=== PATIENT | male | born 1965 | race Caucasian/White ===

== ENCOUNTER 2020-07-07 11:28 | Inpatient (IN) | payer BC ==
--- NOTE | 2020-07-07 12:25 | EDM.PDOC ---
ED HPI GENERAL MEDICAL PROBLEM - General Chief Complaint: Respiratory Problem Stated Complaint: SOB/COIVD+ Time Seen by Provider: 07/07/20 11:56 Source of Information: Reports: Patient, RN Notes Reviewed History Limitations: Reports: No Limitations - History of Present Illness INITIAL COMMENTS - FREE TEXT/NARRATIVE: Patient is a 54-year-old male who presents to the ED for the evaluation of his COVID-19. Patient notes that he got sick last week or Sunday, he was tested for COVID-19 on Sunday, got his results back today that he was positive. He is complaining of a dry intermittent cough, mild shortness of breath with exertion, O2 sats have been in the mid 90s at around 94 to 95% on room air. He is complaining of headache, all over body aches, loss of his sense of smell and taste. He is not in any visible respiratory distress, he has not had any fevers or chills, but states he does get hot and cold flashes. He does not know anyone that had like symptoms, and he denies any known sick contacts that he may have had. He denies any other past medical history, he takes no medications, and he does not have a primary care provider. Headache Pain Score (Numeric/FACES): 7 - Related Data Allergies Allergy/AdvReac Type Severity Reaction Status Date / Time No Known Allergies Allergy Verified 07/07/20 11:59 Home Meds: Home Meds . [No Known Home Meds] 07/07/20 [History] Past Medical History HEENT History: Reports: Impaired Vision Other HEENT History: glasses Neurological History: Reports: Head Trauma Other Neuro History: Pt was run over by horses, plate in scalp. jul 2017 - Infectious Disease History Infectious Disease History: Reports: Novel Coronavirus (COVID-19 jul 01 2020) - Past Surgical History Musculoskeletal Surgical History: Reports: Arthroscopic Knee, Shoulder Surgery, Other (See Below) Other Musculoskeletal Surgeries/Procedures:: ACL, Left bicep tendon, skull fracture with plate in scalp. Social & Family History - Tobacco Use Tobacco Use Status *Q: Never Tobacco User - Caffeine Use Caffeine Use: Reports: Coffee - Alcohol Use Days Per Week of Alcohol Use: 4 Number of Drinks Per Day: 2 Total Drinks Per Week: 8 - Recreational Drug Use Recreational Drug Use: No ED ROS GENERAL - Review of Systems Review Of Systems: Comprehensive ROS is negative, except as noted in HPI. ED EXAM, GENERAL - Physical Exam Exam: See Below Exam Limited By: No Limitations General Appearance: Alert, WD/WN, No Apparent Distress Respiratory/Chest: No Respiratory Distress, Lungs Clear, Normal Breath Sounds, No Accessory Muscle Use, Chest Non-Tender Cardiovascular: Normal Peripheral Pulses, Regular Rate, Rhythm, No Murmur Peripheral Pulses: 2+: Radial (L), Radial (R) GI/Abdominal: Normal Bowel Sounds, Soft, Non-Tender, No Distention, No Mass Extremities: Normal Inspection, Normal Capillary Refill Neurological: Alert, Oriented, Normal Cognition, No Motor/Sensory Deficits Psychiatric: Normal Affect, Normal Mood Skin Exam: Warm, Dry, Intact, Normal Color, No Rash #1 Interpretation EKG Date: 07/07/20 Time: 12:58 Rhythm: NSR Rate (Beats/Min): 77 Taylor: Normal P-Wave: Present QRS: Normal ST-T: Normal QT: Normal Comparison: NA - No Prior EKG EKG Interpretation Comments: No obvious ischemia or acute ST changes noted, reviewed by myself and Dr. Valenzuela. Course - Vital Signs Last Recorded V/S: Last Vital Signs Temp 98.6 F 07/07/20 11:52 Pulse 81 07/07/20 15:25 Resp 24 H 07/07/20 15:25 BP 124/69 07/07/20 15:25 Pulse Ox 93 L 07/07/20 15:25 - Orders/Labs/Meds Orders: Active Orders 24 hr Category Date Time Status EKG Documentation Completion [RC] STAT Care 07/07/20 12:18 Ordered Oxygen Therapy, ED [RC] ASDIRECTED Care 07/07/20 15:58 Ordered Ang Chest [CT] Stat Exams 07/07/20 14:10 Taken Chest 1V Frontal [CR] Stat Exams 07/07/20 12:18 Ordered Sodium Chloride 0.9% [Normal Saline] 45 ml Med 07/07/20 14:30 Active IV ASDIRECTED Sodium Chloride 0.9% [Saline Flush] Med 07/07/20 14:26 Active 10 ml FLUSH ONETIME PRN Medication Orders Sodium Chloride (Normal Saline) 45 mls @ 40 mls/hr IV ASDIRECTED JOSEMANUEL Last Admin: 07/07/20 14:50 Dose: 40 mls/hr Documented by: LUDWJAM Sodium Chloride (Saline Flush) 10 ml FLUSH ONETIME PRN PRN Reason: Keep Vein Open Last Admin: 07/07/20 14:50 Dose: 10 ml Documented by: ESTELLA Labs: Laboratory Tests 07/07/20 07/07/20 07/07/20 Range/Units 12:13 12:13 12:13 WBC 7.59 (4.23-9.07) K/mm3 RBC 4.96 (4.63-6.08) M/mm3 Hgb 15.7 (13.7-17.5) gm/dl Hct 45.8 (40.1-51.0) % MCV 92.3 H (79.0-92.2) fl MCH 31.7 (25.7-32.2) pg MCHC 34.3 (32.2-35.5) g/dl RDW Std Deviation 43.1 (35.1-43.9) fL Plt Count 235 (163-337) K/mm3 MPV 8.7 L (9.4-12.3) fl Neutrophils % (Manual) 88 H (40-60) % Band Neutrophils % 0 (0-10) % Lymphocytes % (Manual) 8 L (20-40) % Atypical Lymphs % 0 % Monocytes % (Manual) 4 (2-10) % Eosinophils % (Manual) 0 L (0.8-7.0) % Basophils % (Manual) 0 L (0.2-1.2) Platelet Estimate Adequate Anisocytosis 1+ slight RBC Morph Comment Abnormal PT 11.2 (9.7-11.7) SECONDS INR 1.05 APTT 29 (22-31) SECONDS D-Dimer, Quantitative 0.68 H (0.19-0.50) mg/L Sodium 126 L (136-145) mEq/L Potassium 3.9 (3.5-5.1) mEq/L Chloride 89 L (98-107) mEq/L Carbon Dioxide 29 (21-32) mEq/L Anion Gap 11.9 (5-15) BUN 19 H (7-18) mg/dL Creatinine 1.4 H (0.7-1.3) mg/dL Est Cr Clr Drug Dosing 57.00 mL/min Estimated GFR (MDRD) 52 (>60) mL/min BUN/Creatinine Ratio 13.6 L (14-18) Glucose 128 H (74-106) mg/dL Calcium 8.4 L (8.5-10.1) mg/dL Magnesium 2.4 (1.8-2.4) mg/dl Ferritin (26-388) ng/ml Total Bilirubin 0.9 (0.2-1.0) mg/dL AST 63 H (15-37) U/L ALT 83 H (16-63) U/L Alkaline Phosphatase 71 (46-116) U/L Lactate Dehydrogenase 574 H (85-227) U/L Troponin I < 0.017 (0.00-0.056) ng/mL C-Reactive Protein (<1.0) mg/dL NT-Pro-B Natriuret Pep (0-125) pg/mL Total Protein 7.1 (6.4-8.2) g/dl Albumin 3.1 L (3.4-5.0) g/dl Globulin 4.0 gm/dL Albumin/Globulin Ratio 0.8 L (1-2) 07/07/20 07/07/20 07/07/20 Range/Units 12:13 12:13 12:20 WBC (4.23-9.07) K/mm3 RBC (4.63-6.08) M/mm3 Hgb (13.7-17.5) gm/dl Hct (40.1-51.0) % MCV (79.0-92.2) fl MCH (25.7-32.2) pg MCHC (32.2-35.5) g/dl RDW Std Deviation (35.1-43.9) fL Plt Count (163-337) K/mm3 MPV (9.4-12.3) fl Neutrophils % (Manual) (40-60) % Band Neutrophils % (0-10) % Lymphocytes % (Manual) (20-40) % Atypical Lymphs % % Monocytes % (Manual) (2-10) % Eosinophils % (Manual) (0.8-7.0) % Basophils % (Manual) (0.2-1.2) Platelet Estimate Anisocytosis RBC Morph Comment PT (9.7-11.7) SECONDS INR APTT (22-31) SECONDS D-Dimer, Quantitative (0.19-0.50) mg/L Sodium (136-145) mEq/L Potassium (3.5-5.1) mEq/L Chloride (98-107) mEq/L Carbon Dioxide (21-32) mEq/L Anion Gap (5-15) BUN (7-18) mg/dL Creatinine (0.7-1.3) mg/dL Est Cr Clr Drug Dosing mL/min Estimated GFR (MDRD) (>60) mL/min BUN/Creatinine Ratio (14-18) Glucose (74-106) mg/dL Calcium (8.5-10.1) mg/dL Magnesium (1.8-2.4) mg/dl Ferritin 4006 H (26-388) ng/ml Total Bilirubin (0.2-1.0) mg/dL AST (15-37) U/L ALT (16-63) U/L Alkaline Phosphatase (46-116) U/L Lactate Dehydrogenase (85-227) U/L Troponin I (0.00-0.056) ng/mL C-Reactive Protein 28.1 H* (<1.0) mg/dL NT-Pro-B Natriuret Pep 72 (0-125) pg/mL Total Protein (6.4-8.2) g/dl Albumin (3.4-5.0) g/dl Globulin gm/dL Albumin/Globulin Ratio (1-2) Meds: Medications Generic Name Dose Route Start Last Admin Trade Name Freq PRN Reason Stop Dose Admin Sodium Chloride 45 mls @ 40 mls/hr 07/07/20 14:30 07/07/20 14:50 Normal Saline IV 40 mls/hr ASDIRECTED JOSEMANUEL Administration Sodium Chloride 10 ml 07/07/20 14:26 07/07/20 14:50 Saline Flush FLUSH 10 ml ONETIME PRN Administration Keep Vein Open Discontinued Medications Generic Name Dose Route Start Last Admin Trade Name Freq PRN Reason Stop Dose Admin Sodium Chloride 1,000 mls @ 999 mls/hr 07/07/20 13:21 07/07/20 13:30 Normal Saline IV 07/07/20 14:21 999 mls/hr ONETIME ONE Administration Iopamidol 100 ml 07/07/20 14:26 07/07/20 14:27 Isovue-300 (61%) IVPUSH 07/07/20 14:27 Not Given ONETIME ONE Iopamidol 100 ml 07/07/20 14:28 07/07/20 14:50 Isovue-370 (76%) IVPUSH 07/07/20 14:29 100 ml ONETIME ONE Administration - Re-Assessments/Exams Free Text/Narrative Re-Assessment/Exam: 07/07/20 12:28 Patient presents to the ED for evaluation of his ongoing COVID-19 symptoms. As per his symptomatic start date, he is roughly 1 week into this illness, so he is in the window of when this illness should be at its worst. I did reassure the patient that his oxygen levels look good when he is here, monitor these, along with some lab values, and likely be able to discharge him home. 07/07/20 13:31 Patient's chest x-ray demonstrates bilateral nodular infiltrates of uncertain etiology. CT is recommended for further evaluation. Patient's D-dimer was elevated at 0.68. Creatinine is mildly elevated at 1.4, GFR is in the 50s. Patient sodium is mildly low at 126, all other labs that have resulted are fairly unremarkable, CBC was unremarkable. 07/07/20 15:[address] did demonstrate extensive bilateral multifocal predominantly groundglass opacities as above, findings suggestive of multifocal pneumonia commonly seen with COVID-19 pneumonia. The presence of the lymphadenopathy is slightly atypical however, other processes such as influenza pneumonia and organizing pneumonia can be seen as well as drug tests to city and connective tissue disease. No other acute pulmonary embolus was identified. Multiple borderline to mildly enlarged thoracic lymph nodes identified, largest is a subcarinal lymph node measuring 1.7 cm. Again the patient CRP is markedly elevated at 28, this very well could be the cause of the enlarged nodes. Departure - Departure Time of Disposition: 15:59 Disposition: Admitted As Inpatient 64 Condition: Good Clinical Impression: COVID-19, Hypoxia - Discharge Information *PRESCRIPTION DRUG MONITORING PROGRAM REVIEWED*: No *COPY OF PRESCRIPTION DRUG MONITORING REPORT IN PATIENT JEANNETTE: No Referrals: PCP,None [Primary Care Provider] - Forms: ED Department Discharge Sepsis Event Note (ED) - Evaluation Sepsis Screening Result: No Definite Risk - Focused Exam Vital Signs: Vital Signs Temp Pulse Resp BP Pulse Ox 07/07/20 15:25 81 24 H 124/69 93 L 07/07/20 11:52 98.6 F 72 26 H 135/88 92 L - My Orders Last 24 Hours: My Active Orders 07/07/20 12:18 EKG Documentation Completion [RC] STAT Chest 1V Frontal [CR] Stat 07/07/20 14:10 Ang Chest [CT] Stat 07/07/20 14:26 Sodium Chloride 0.9% [Saline Flush] 10 ml FLUSH ONETIME PRN 07/07/20 14:30 Sodium Chloride 0.9% [Normal Saline] 45 ml IV ASDIRECTED 07/07/20 15:58 Oxygen Therapy, ED [RC] ASDIRECTED - Assessment/Plan Last 24 Hours: My Active Orders 07/07/20 12:18 EKG Documentation Completion [RC] STAT Chest 1V Frontal [CR] Stat 07/07/20 14:10 Ang Chest [CT] Stat 07/07/20 14:26 Sodium Chloride 0.9% [Saline Flush] 10 ml FLUSH ONETIME PRN 07/07/20 14:30 Sodium Chloride 0.9% [Normal Saline] 45 ml IV ASDIRECTED 07/07/20 15:58 Oxygen Therapy, ED [RC] ASDIRECTED
[2020-07-07] MEDS ORDERED: Sodium Chloride 0.9% 1,000 ML IV ONE (13:21)
[2020-07-07] MEDS ORDERED: Iopamidol 612 MG/ML 100 ML Bottle IVPUSH ONE (14:26)
[2020-07-07] MEDS ORDERED: Sodium Chloride 0.9% 10 ML Syringe FLUSH PRN (14:26)
[2020-07-07] MEDS ORDERED: Iopamidol 755 Mg/ML 100 ML Bottle IVPUSH ONE (14:28)
[2020-07-07] MEDS ORDERED: Sodium Chloride 0.9% 45 ML IV SCH (14:30)
[2020-07-07] MEDS ORDERED: Docusate Sodium 100 MG Cap PO PRN (16:35)
[2020-07-07] MEDS ORDERED: Ondansetron 4 MG Tab.DIS PO PRN (16:35)
[2020-07-07] MEDS ORDERED: Sodium Chloride 0.9% 1,000 ML IV SCH (16:45)
--- NOTE | 2020-07-07 16:45 | PCM.HP.2 ---
H&P History of Present Illness - General Date of Service: 07/07/20 Admit Problem/Dx: Admission Diagnosis/Problem Admission Diagnosis/Problem Hypoxia, COVID-19 Source of Information: Patient History Limitations: Reports: No Limitations - History of Present Illness Initial Comments - Free Text/Narative: The patient is an otherwise healthy 54-year-old gentleman who had presented to the emergency department for evaluation of his Covid 19 testing. Patient said that he got sick last week and he was tested for Covid 2 days ago. He has had a dry cough along with shortness of breath. The patient also said that he has shortness of breath with exertion. The patient also has been complaining of body aches. The patient has denied any fever or chills. He does not use oxygen at home. The patient does not use tobacco. He does not take any home medications chronically. Onset of Symptoms: Reports: Gradual Duration of Symptoms: Reports: Day(s):, Getting Worse Location: Reports: Chest, Generalized Quality: Reports: Ache Severity: Mild Improves with: Reports: Other (Oxygen) Worsens with: Reports: Breathing, Movement Associated Symptoms: Reports: Cough Headache Pain Score (Numeric/FACES): 7 - Related Data Allergies/Adverse Reactions: Allergies Allergy/AdvReac Type Severity Reaction Status Date / Time No Known Allergies Allergy Verified 07/07/20 11:59 Home Medications: Home Meds . [No Known Home Meds] 07/07/20 [History] Past Medical History HEENT History: Reports: Impaired Vision Other HEENT History: glasses Cardiovascular History: Reports: None Respiratory History: Reports: None Gastrointestinal History: Reports: None Genitourinary History: Reports: None Musculoskeletal History: Reports: None Neurological History: Reports: Head Trauma Other Neuro History: Pt was run over by horses, plate in scalp. jul 2017 Psychiatric History: Reports: None Endocrine/Metabolic History: Reports: None Hematologic History: Reports: None Immunologic History: Reports: None Oncologic (Cancer) History: Reports: None Dermatologic History: Reports: None - Infectious Disease History Infectious Disease History: Reports: Novel Coronavirus (COVID-19 jul 01 2020) - Past Surgical History Musculoskeletal Surgical History: Reports: Arthroscopic Knee, Shoulder Surgery, Other (See Below) Other Musculoskeletal Surgeries/Procedures:: ACL, Left bicep tendon, skull fracture with plate in scalp. Social & Family History - Tobacco Use Tobacco Use Status *Q: Never Tobacco User - Caffeine Use Caffeine Use: Reports: Coffee - Alcohol Use Days Per Week of Alcohol Use: 4 Number of Drinks Per Day: 2 Total Drinks Per Week: 8 - Recreational Drug Use Recreational Drug Use: No - Living Situation & Occupation Living situation: Reports: with Family H&P Review of Systems - Review of Systems: Review Of Systems: See Below General: Reports: Malaise, Weakness HEENT: Reports: No Symptoms Pulmonary: Reports: Shortness of Breath, Wheezing, Cough Cardiovascular: Reports: No Symptoms Gastrointestinal: Reports: No Symptoms Genitourinary: Reports: No Symptoms Musculoskeletal: Reports: Hand Pain Skin: Reports: No Symptoms Psychiatric: Reports: No Symptoms Neurological: Reports: No Symptoms Hematologic/Lymphatic: Reports: No Symptoms Immunologic: Reports: No Symptoms Exam - Exam Exam: See Below - Vital Signs Vital Signs: Last Vital Signs Temp 37.3 C 07/07/20 16:35 Pulse 86 07/07/20 16:35 Resp 24 H 07/07/20 16:35 BP 125/84 07/07/20 16:35 Pulse Ox 92 L 07/07/20 16:35 Weight: 85.474 kg - Exam Quality Assessment: Supplemental Oxygen General: Alert, Oriented, Cooperative, Mild Distress HEENT: EACs Clear, EOMI, Mucosa Moist & [place], Nares Patent. No: Conjunctiva Clear (Inflamed) Neck: Supple, Trachea Midline Lungs: Normal Respiratory Effort, Rales (Bibasilar) Cardiovascular: Regular Rate, Regular Rhythm GI/Abdominal Exam: Normal Bowel Sounds, Soft, Non-Tender, No Distention (Male) Exam: Deferred Rectal (Males) Exam: Deferred Back Exam: Normal Inspection, Full Range of Motion Extremities: Normal Inspection, No Pedal Edema Skin: Warm, Dry, Intact Neurological: Cranial Nerves Intact, Reflexes Equal Bilateral Neuro Extensive - Mental Status: Alert, Oriented x3 Psychiatric: Alert, Normal Affect, Normal Mood - Patient Data Lab Results Last 24 hrs: Laboratory Results - last 24 hr 07/07/20 07/07/20 07/07/20 Range/Units 12:13 12:13 12:13 WBC 7.59 (4.23-9.07) K/mm3 RBC 4.96 (4.63-6.08) M/mm3 Hgb 15.7 (13.7-17.5) gm/dl Hct 45.8 (40.1-51.0) % MCV 92.3 H (79.0-92.2) fl MCH 31.7 (25.7-32.2) pg MCHC 34.3 (32.2-35.5) g/dl RDW Std Deviation 43.1 (35.1-43.9) fL Plt Count 235 (163-337) K/mm3 MPV 8.7 L (9.4-12.3) fl Neutrophils % (Manual) 88 H (40-60) % Band Neutrophils % 0 (0-10) % Lymphocytes % (Manual) 8 L (20-40) % Atypical Lymphs % 0 % Monocytes % (Manual) 4 (2-10) % Eosinophils % (Manual) 0 L (0.8-7.0) % Basophils % (Manual) 0 L (0.2-1.2) Platelet Estimate Adequate Anisocytosis 1+ slight RBC Morph Comment Abnormal PT 11.2 (9.7-11.7) SECONDS INR 1.05 APTT 29 (22-31) SECONDS D-Dimer, Quantitative 0.68 H (0.19-0.50) mg/L Sodium 126 L (136-145) mEq/L Potassium 3.9 (3.5-5.1) mEq/L Chloride 89 L (98-107) mEq/L Carbon Dioxide 29 (21-32) mEq/L Anion Gap 11.9 (5-15) BUN 19 H (7-18) mg/dL Creatinine 1.4 H (0.7-1.3) mg/dL Est Cr Clr Drug Dosing 57.00 mL/min Estimated GFR (MDRD) 52 (>60) mL/min BUN/Creatinine Ratio 13.6 L (14-18) Glucose 128 H (74-106) mg/dL Calcium 8.4 L (8.5-10.1) mg/dL Magnesium 2.4 (1.8-2.4) mg/dl Ferritin (26-388) ng/ml Total Bilirubin 0.9 (0.2-1.0) mg/dL AST 63 H (15-37) U/L ALT 83 H (16-63) U/L Alkaline Phosphatase 71 (46-116) U/L Lactate Dehydrogenase 574 H (85-227) U/L Troponin I < 0.017 (0.00-0.056) ng/mL C-Reactive Protein (<1.0) mg/dL NT-Pro-B Natriuret Pep (0-125) pg/mL Total Protein 7.1 (6.4-8.2) g/dl Albumin 3.1 L (3.4-5.0) g/dl Globulin 4.0 gm/dL Albumin/Globulin Ratio 0.8 L (1-2) 07/07/20 07/07/20 07/07/20 Range/Units 12:13 12:13 12:20 WBC (4.23-9.07) K/mm3 RBC (4.63-6.08) M/mm3 Hgb (13.7-17.5) gm/dl Hct (40.1-51.0) % MCV (79.0-92.2) fl MCH (25.7-32.2) pg MCHC (32.2-35.5) g/dl RDW Std Deviation (35.1-43.9) fL Plt Count (163-337) K/mm3 MPV (9.4-12.3) fl Neutrophils % (Manual) (40-60) % Band Neutrophils % (0-10) % Lymphocytes % (Manual) (20-40) % Atypical Lymphs % % Monocytes % (Manual) (2-10) % Eosinophils % (Manual) (0.8-7.0) % Basophils % (Manual) (0.2-1.2) Platelet Estimate Anisocytosis RBC Morph Comment PT (9.7-11.7) SECONDS INR APTT (22-31) SECONDS D-Dimer, Quantitative (0.19-0.50) mg/L Sodium (136-145) mEq/L Potassium (3.5-5.1) mEq/L Chloride (98-107) mEq/L Carbon Dioxide (21-32) mEq/L Anion Gap (5-15) BUN (7-18) mg/dL Creatinine (0.7-1.3) mg/dL Est Cr Clr Drug Dosing mL/min Estimated GFR (MDRD) (>60) mL/min BUN/Creatinine Ratio (14-18) Glucose (74-106) mg/dL Calcium (8.5-10.1) mg/dL Magnesium (1.8-2.4) mg/dl Ferritin 4006 H (26-388) ng/ml Total Bilirubin (0.2-1.0) mg/dL AST (15-37) U/L ALT (16-63) U/L Alkaline Phosphatase (46-116) U/L Lactate Dehydrogenase (85-227) U/L Troponin I (0.00-0.056) ng/mL C-Reactive Protein 28.1 H* (<1.0) mg/dL NT-Pro-B Natriuret Pep 72 (0-125) pg/mL Total Protein (6.4-8.2) g/dl Albumin (3.4-5.0) g/dl Globulin gm/dL Albumin/Globulin Ratio (1-2) Result Diagrams: 07/07/20 12:13 07/07/20 12:13 Sepsis Event Note - Evaluation Sepsis Screening Result: No Definite Risk - Focused Exam Vital Signs: Vital Signs Temp Pulse Resp BP Pulse Ox 07/07/20 16:35 37.3 C 86 24 H 125/84 92 L 07/07/20 15:25 81 24 H 124/69 93 L 07/07/20 11:52 37.0 C 72 26 H 135/88 92 L - Problem List (1) COVID-19 SNOMED Code(s): 166370244 ICD Code: U07.1 - COVID-19 Status: Acute Current Visit: Yes (2) Hypoxia SNOMED Code(s): 833886778 ICD Code: R09.02 - HYPOXEMIA Status: Acute Current Visit: Yes Problem List Initiated/Reviewed/Updated: Yes Orders Last 24hrs: Active Orders 24 hr Category Date Time Status Admission Status [Patient Status] [ADT] Routine ADT 07/07/20 16:27 Active Cardiac Monitoring [RC] CONTINUOUS Care 07/07/20 16:36 Ordered EKG Documentation Completion [RC] STAT Care 07/07/20 12:18 Active Incentive Spirometry [RT Incentive Spirometry] [RC] Care 07/07/20 16:42 Active Q1HWA Oxygen Therapy [RC] PRN Care 07/07/20 16:35 Ordered Oxygen Therapy, ED [RC] ASDIRECTED Care 07/07/20 15:58 Active Pulse Oximetry [RC] CONTINUOUS Care 07/07/20 16:36 Ordered RT Aerosol Therapy [RC] ASDIRECTED Care 07/07/20 16:40 Ordered RT Chest Physiotherapy [RC] ASDIRECTED Care 07/07/20 16:42 Active Up ad Jailene [RC] ASDIRECTED Care 07/07/20 16:35 Ordered VTE/DVT Education [RC] PER UNIT ROUTINE Care 07/07/20 16:35 Ordered Vital Signs [RC] Q4H Care 07/07/20 16:35 Ordered Regular Diet [DIET] Diet 07/07/20 Dinner Ordered Ang Chest [CT] Stat Exams 07/07/20 14:10 Taken Chest 1V Frontal [CR] Stat Exams 07/07/20 12:18 Taken C-REACTIVE PROTEIN [CHEM] AM Lab 07/08/20 05:11 Ordered CBC WITH AUTO DIFF [HEME] AM Lab 07/08/20 05:11 Ordered COMPREHENSIVE METABOLIC PN,CMP [CHEM] AM Lab 07/08/20 05:11 Ordered FRESH FROZEN PLASMA [BBK] Routine Lab 07/07/20 16:43 Ordered MAGNESIUM [CHEM] AM Lab 07/08/20 05:11 Ordered PHOSPHORUS [CHEM] AM Lab 07/08/20 05:11 Ordered Acetaminophen [TylenoL] Med 07/07/20 16:35 Ordered 650 mg PO Q4H PRN Albuterol [Proventil Neb Soln] Med 07/07/20 16:35 Ordered 2.5 mg NEB Q2H PRN Docusate Sodium [Colace] Med 07/07/20 16:35 Ordered 100 mg PO BID PRN Enoxaparin [Lovenox] Med 07/07/20 16:45 Ordered 40 mg SUBCUT DAILY Ondansetron [Zofran ODT] Med 07/07/20 16:35 Ordered 4 mg PO Q6H PRN Remdesivir (Eua) [Remdesivir (EUA)] 100 mg Med 07/08/20 16:45 Ordered Sodium Chloride 0.9% [Normal Saline] 100 ml IV Q24H Remdesivir (Eua) [Remdesivir (EUA)] 200 mg Med 07/07/20 16:42 Ordered Sodium Chloride 0.9% [Normal Saline] 250 ml IV ONETIME Sodium Chloride 0.9% [Normal Saline] 1,000 ml Med 07/07/20 16:45 Ordered IV ASDIRECTED Sodium Chloride 0.9% [Normal Saline] 45 ml Med 07/07/20 14:30 Active IV ASDIRECTED Sodium Chloride 0.9% [Saline Flush] Med 07/07/20 14:26 Active 10 ml FLUSH ONETIME PRN Temazepam [Restoril] Med 07/07/20 16:35 Ordered 15 mg PO BEDTIME PRN dexAMETHasone [Dexamethasone] Med 07/07/20 16:45 Ordered 6 mg IV DAILY oxyCODONE Med 07/07/20 16:35 Ordered 5 mg PO Q4H PRN Transfuse Fresh Frozen Plasma [COMM] Urgent Oth 07/07/20 16:43 Ordered Resuscitation Status Routine Resus Stat 07/07/20 16:35 Ordered Medication Orders Acetaminophen (Tylenol) 650 mg PO Q4H PRN PRN Reason: Pain (Mild 1-3)/fever Albuterol (Proventil Neb Soln) 2.5 mg NEB Q2H PRN PRN Reason: Shortness Of Breath/wheezing Docusate Sodium (Colace) 100 mg PO BID PRN PRN Reason: Constipation Enoxaparin Sodium (Lovenox) 40 mg SUBCUT DAILY [facility] Sodium Chloride (Normal Saline) 45 mls @ 40 mls/hr IV ASDIRECTED [facility] Last Admin: 07/07/20 14:50 Dose: 40 mls/hr Documented by: ESTELLA Sodium Chloride (Normal Saline) 1,000 mls @ 75 mls/hr IV ASDIRECTED [facility] Ondansetron HCl (Zofran Odt) 4 mg PO Q6H PRN PRN Reason: nausea, able to take PO Oxycodone HCl (Oxycodone) 5 mg PO Q4H PRN PRN Reason: Pain (moderate 4-6) Sodium Chloride (Saline Flush) 10 ml FLUSH ONETIME PRN PRN Reason: Keep Vein Open Last Admin: 07/07/20 14:50 Dose: 10 ml Documented by: ESTELLA Temazepam (Restoril) 15 mg PO BEDTIME PRN PRN Reason: Sleep Assessment/Plan Comment:: The patient is a 54-year-old gentleman who has been admitted as an inpatient secondary to hypoxia and COVID-19. The patient will be kept on oxygen to help keep his saturations at 90 to 92%. Also he will be started on remdesivir 100 mg initially by 100 mg IV daily. I have also started the patient on dexamethasone 6 mg IV daily. He will be ordered to have 2 L of convalescent plasma. The patient has been advised of the emergency use also authorization and he agrees. The patient also be started on anticoagulation with the use of Lovenox 40 mg. The patient will have a regular diet as tolerated. I have also ordered repeat laboratory studies for the morning. The patient should be appropriate for discharge in 3 to 5 days. 1. I spoke with Jerrod to provide information about convalescent plasma for COVID -19 2. I offered them the Facts Sheet for Patients and Parents/Caregivers for COVID-19 convalescent plasma to read and review. 3. I stated that the therapy has been approved by the Emergency Use Authorization (EUA) process and not fully been FDA reviewed or approved. 4. I shared potential risk from the therapy including transmission of blood borne pathogens such as HIV and hepatitis C, allergic and transfusion related reactions, post-transfusion purpura. Additionally, theoretical risks including a phenomenon called anti-body dependent enhancement of infection such as seen in dengue fever or attenuation of an immune response that may make patients more susceptible to re-infection. 5. I discussed there are other potential treatment options that are currently not FDA approved to treat COVID-19. 6. Discussed with the patient that is not an exclusion for convalescent plasma treatment, but the therapy has not been fully evaluated in patients. 7. Offered the opportunity to ask questions and all questions were answered. 8. Jerrod voiced understanding and agreed to proceed with treatment for him. 1. I spoke with Jerrod to provide information about Remdesvir for COVID-19 2. I offered them the Facts Sheet for Patients and Parents/Caregivers for COVID-19 Remdesvir to read and review. 3. I stated that the therapy has been approved by the Emergency Use Authorization (EUA) process and not fully been FDA reviewed or approved. 4. The patient meets EUA requirements. 5. I shared that the drug may cause liver abnormalities and infusion related side effects. Additionally, other side effects are possible but not known as the drug has had limited studies. 6. I discussed there are other potential treatment options that are currently not FDA approved to treat COVID-19. Plasma treatment, but the therapy has not been fully evaluated in patients. 7. Discussed with the patient that is not an exclusion for Remdesvir treatment. 8. Offered the opportunity to ask questions and all questions were answered. 9. Jerrod voiced understanding and agreed to proceed with treatment for him. - Mortality Measure Prognosis:: Good
[2020-07-07] MEDS ORDERED: Enoxaparin 40 MG/0.4 ML Syringe SUBCUT SCH (17:00)
[2020-07-07] MEDS ORDERED: Dexamethasone 4 MG/ML SDV IV SCH ×2 (17:00→20:45)
[2020-07-07] MEDS ORDERED: Acetaminophen 325 MG Tab PO ONE (17:40)
[2020-07-07] MEDS: Enoxaparin 40 MG/0.4 ML Syringe SUBCUT SCH (20:53)
[2020-07-07] MEDS ORDERED: Temazepam 15 MG Cap PO PRN (21:00)
[2020-07-07] MEDS ORDERED: FLU VACC QS2020-21(6MOS UP)/PF 60 MCG/0.5 ML SYRINGE IM ONE (21:45)
[2020-07-07] MEDS: Albuterol 0.083% 2.5 MG/3 ML Neb Soln NEB PRN (22:02)
[2020-07-07] MEDS: Acetaminophen 325 MG Tab PO PRN (23:44)
[2020-07-08] MEDS: Albuterol 0.083% 2.5 MG/3 ML Neb Soln NEB PRN (04:41)
[2020-07-08] MEDS ORDERED: Azithromycin 500 MG AdvVial IV SCH (08:45)
[2020-07-08] MEDS: cefTRIAXone 2 GM in Sodium Chloride 0.9% 100 ML IV SCH (09:12)
[2020-07-08] MEDS: Azithromycin 500 MG in Sodium Chloride 0.9% 250 ML IV SCH (09:15)
[2020-07-08] MEDS: oxyCODONE 5 MG Tab PO PRN ×2 (09:41→15:14)
[2020-07-08] MEDS: Acetaminophen 325 MG Tab PO PRN ×3 (09:58→20:17)
--- NOTE | 2020-07-08 12:59 | PCM.PN ---
<Tao,DeAnn M - Last Filed: 07/08/20 13:35> - General Info Date of Service: 07/08/20 Admission Dx/Problem (Free Text): Admission Diagnosis/Problem Admission Diagnosis/Problem Hypoxia, COVID-19 Functional Status: Reports: Pain Controlled, Incentive Spirometry. Denies: Tolerating Diet (Very poor appetite) - Review of Systems General: Reports: Weakness, Fatigue, Malaise. Denies: Appetite HEENT: Reports: Headaches, Sore Throat Pulmonary: Reports: Shortness of Breath, Cough. Denies: Sputum, Wheezing Cardiovascular: Reports: No Symptoms Gastrointestinal: Reports: Decreased Appetite. Denies: Diarrhea Genitourinary: Reports: No Symptoms Musculoskeletal: Reports: No Symptoms Skin: Reports: No Symptoms Neurological: Reports: No Symptoms Psychiatric: Reports: No Symptoms - Patient Data Vitals - Most Recent: Last Vital Signs Temp 98.5 F 07/08/20 11:04 Pulse 71 07/08/20 11:04 Resp 18 07/08/20 11:04 BP 116/71 07/08/20 11:04 Pulse Ox 89 L 07/08/20 10:46 Weight - Most Recent: 76.975 kg I&O - Last 24 Hours: Intake & Output 07/07/20 07/08/20 07/08/20 22:59 06:59 14:59 Intake Total 0 301 Balance 0 301 Lab Results Last 24 Hours: Laboratory Results - last 24 hr 07/07/20 07/07/20 07/07/20 Range/Units 12:13 12:13 12:13 WBC (4.23-9.07) K/mm3 RBC (4.63-6.08) M/mm3 Hgb (13.7-17.5) gm/dl Hct (40.1-51.0) % MCV (79.0-92.2) fl MCH (25.7-32.2) pg MCHC (32.2-35.5) g/dl RDW Std Deviation (35.1-43.9) fL Plt Count (163-337) K/mm3 MPV (9.4-12.3) fl Neut % (Auto) (34.0-67.9) % Lymph % (Auto) (21.8-53.1) % Williams % (Auto) (5.3-12.2) % Eos % (Auto) (0.8-7.0) Baso % (Auto) (0.1-1.2) % Neut # (Auto) (1.78-5.38) K/mm3 Lymph # (Auto) (1.32-3.57) K/mm3 Williams # (Auto) (0.30-0.82) K/mm3 Eos # (Auto) (0.04-0.54) K/mm3 Baso # (Auto) (0.01-0.08) K/mm3 Neutrophils % (Manual) 88 H (40-60) % Band Neutrophils % 0 (0-10) % Lymphocytes % (Manual) 8 L (20-40) % Atypical Lymphs % 0 % Monocytes % (Manual) 4 (2-10) % Eosinophils % (Manual) 0 L (0.8-7.0) % Basophils % (Manual) 0 L (0.2-1.2) Manual Slide Review Platelet Estimate Adequate Anisocytosis 1+ slight RBC Morph Comment Abnormal PT 11.2 (9.7-11.7) SECONDS INR 1.05 APTT 29 (22-31) SECONDS D-Dimer, Quantitative 0.68 H (0.19-0.50) mg/L Sodium 126 L (136-145) mEq/L Potassium 3.9 (3.5-5.1) mEq/L Chloride 89 L (98-107) mEq/L Carbon Dioxide 29 (21-32) mEq/L Anion Gap 11.9 (5-15) BUN 19 H (7-18) mg/dL Creatinine 1.4 H (0.7-1.3) mg/dL Est Cr Clr Drug Dosing 57.00 mL/min Estimated GFR (MDRD) 52 (>60) mL/min BUN/Creatinine Ratio 13.6 L (14-18) Glucose 128 H (74-106) mg/dL Calcium 8.4 L (8.5-10.1) mg/dL Phosphorus (2.6-4.7) mg/dL Magnesium 2.4 (1.8-2.4) mg/dl Ferritin (26-388) ng/ml Total Bilirubin 0.9 (0.2-1.0) mg/dL AST 63 H (15-37) U/L ALT 83 H (16-63) U/L Alkaline Phosphatase 71 (46-116) U/L Lactate Dehydrogenase 574 H (85-227) U/L Troponin I < 0.017 (0.00-0.056) ng/mL C-Reactive Protein (<1.0) mg/dL NT-Pro-B Natriuret Pep (0-125) pg/mL Total Protein 7.1 (6.4-8.2) g/dl Albumin 3.1 L (3.4-5.0) g/dl Globulin 4.0 gm/dL Albumin/Globulin Ratio 0.8 L (1-2) Vitamin D 25-Hydroxy (30.0-100.0) ng/ml Blood Type 07/07/20 07/07/20 07/07/20 Range/Units 12:13 12:13 12:13 WBC (4.23-9.07) K/mm3 RBC (4.63-6.08) M/mm3 Hgb (13.7-17.5) gm/dl Hct (40.1-51.0) % MCV (79.0-92.2) fl MCH (25.7-32.2) pg MCHC (32.2-35.5) g/dl RDW Std Deviation (35.1-43.9) fL Plt Count (163-337) K/mm3 MPV (9.4-12.3) fl Neut % (Auto) (34.0-67.9) % Lymph % (Auto) (21.8-53.1) % Williams % (Auto) (5.3-12.2) % Eos % (Auto) (0.8-7.0) Baso % (Auto) (0.1-1.2) % Neut # (Auto) (1.78-5.38) K/mm3 Lymph # (Auto) (1.32-3.57) K/mm3 Williams # (Auto) (0.30-0.82) K/mm3 Eos # (Auto) (0.04-0.54) K/mm3 Baso # (Auto) (0.01-0.08) K/mm3 Neutrophils % (Manual) (40-60) % Band Neutrophils % (0-10) % Lymphocytes % (Manual) (20-40) % Atypical Lymphs % % Monocytes % (Manual) (2-10) % Eosinophils % (Manual) (0.8-7.0) % Basophils % (Manual) (0.2-1.2) Manual Slide Review Platelet Estimate Anisocytosis RBC Morph Comment PT (9.7-11.7) SECONDS INR APTT (22-31) SECONDS D-Dimer, Quantitative (0.19-0.50) mg/L Sodium (136-145) mEq/L Potassium (3.5-5.1) mEq/L Chloride (98-107) mEq/L Carbon Dioxide (21-32) mEq/L Anion Gap (5-15) BUN (7-18) mg/dL Creatinine (0.7-1.3) mg/dL Est Cr Clr Drug Dosing mL/min Estimated GFR (MDRD) (>60) mL/min BUN/Creatinine Ratio (14-18) Glucose (74-106) mg/dL Calcium (8.5-10.1) mg/dL Phosphorus (2.6-4.7) mg/dL Magnesium (1.8-2.4) mg/dl Ferritin 4006 H (26-388) ng/ml Total Bilirubin (0.2-1.0) mg/dL AST (15-37) U/L ALT (16-63) U/L Alkaline Phosphatase (46-116) U/L Lactate Dehydrogenase (85-227) U/L Troponin I (0.00-0.056) ng/mL C-Reactive Protein (<1.0) mg/dL NT-Pro-B Natriuret Pep 72 (0-125) pg/mL Total Protein (6.4-8.2) g/dl Albumin (3.4-5.0) g/dl Globulin gm/dL Albumin/Globulin Ratio (1-2) Vitamin D 25-Hydroxy (30.0-100.0) ng/ml Blood Type O POSITIVE 07/07/20 07/08/20 07/08/20 Range/Units 12:20 05:48 05:48 WBC 9.24 H (4.23-9.07) K/mm3 RBC 4.64 (4.63-6.08) M/mm3 Hgb 14.7 (13.7-17.5) gm/dl Hct 43.2 (40.1-51.0) % MCV 93.1 H (79.0-92.2) fl MCH 31.7 (25.7-32.2) pg MCHC 34.0 (32.2-35.5) g/dl RDW Std Deviation 44.0 H (35.1-43.9) fL Plt Count 239 (163-337) K/mm3 MPV 8.9 L (9.4-12.3) fl Neut % (Auto) 94.8 H (34.0-67.9) % Lymph % (Auto) 2.5 L (21.8-53.1) % Williams % (Auto) 2.4 L (5.3-12.2) % Eos % (Auto) 0 L (0.8-7.0) Baso % (Auto) 0.0 L (0.1-1.2) % Neut # (Auto) 8.76 H (1.78-5.38) K/mm3 Lymph # (Auto) 0.23 L (1.32-3.57) K/mm3 Williams # (Auto) 0.22 L (0.30-0.82) K/mm3 Eos # (Auto) 0.00 L (0.04-0.54) K/mm3 Baso # (Auto) 0.00 L (0.01-0.08) K/mm3 Neutrophils % (Manual) (40-60) % Band Neutrophils % (0-10) % Lymphocytes % (Manual) (20-40) % Atypical Lymphs % % Monocytes % (Manual) (2-10) % Eosinophils % (Manual) (0.8-7.0) % Basophils % (Manual) (0.2-1.2) Manual Slide Review Abnormal smear Platelet Estimate Anisocytosis RBC Morph Comment PT (9.7-11.7) SECONDS INR APTT (22-31) SECONDS D-Dimer, Quantitative (0.19-0.50) mg/L Sodium 130 L (136-145) mEq/L Potassium 4.0 (3.5-5.1) mEq/L Chloride 94 L (98-107) mEq/L Carbon Dioxide 26 (21-32) mEq/L Anion Gap 14.0 (5-15) BUN 18 (7-18) mg/dL Creatinine 1.3 (0.7-1.3) mg/dL Est Cr Clr Drug Dosing 61.38 mL/min Estimated GFR (MDRD) 57 (>60) mL/min BUN/Creatinine Ratio 13.8 L (14-18) Glucose 156 H (74-106) mg/dL Calcium 8.2 L (8.5-10.1) mg/dL Phosphorus 3.4 (2.6-4.7) mg/dL Magnesium 2.4 (1.8-2.4) mg/dl Ferritin (26-388) ng/ml Total Bilirubin 0.7 (0.2-1.0) mg/dL AST 74 H (15-37) U/L ALT 69 H (16-63) U/L Alkaline Phosphatase 65 (46-116) U/L Lactate Dehydrogenase (85-227) U/L Troponin I (0.00-0.056) ng/mL C-Reactive Protein 28.1 H* 31.8 H* (<1.0) mg/dL NT-Pro-B Natriuret Pep (0-125) pg/mL Total Protein 6.4 (6.4-8.2) g/dl Albumin 2.6 L (3.4-5.0) g/dl Globulin 3.8 gm/dL Albumin/Globulin Ratio 0.7 L (1-2) Vitamin D 25-Hydroxy (30.0-100.0) ng/ml Blood Type 07/08/20 07/08/20 Range/Units 05:48 05:48 WBC (4.23-9.07) K/mm3 RBC (4.63-6.08) M/mm3 Hgb (13.7-17.5) gm/dl Hct (40.1-51.0) % MCV (79.0-92.2) fl MCH (25.7-32.2) pg MCHC (32.2-35.5) g/dl RDW Std Deviation (35.1-43.9) fL Plt Count (163-337) K/mm3 MPV (9.4-12.3) fl Neut % (Auto) (34.0-67.9) % Lymph % (Auto) (21.8-53.1) % Williams % (Auto) (5.3-12.2) % Eos % (Auto) (0.8-7.0) Baso % (Auto) (0.1-1.2) % Neut # (Auto) (1.78-5.38) K/mm3 Lymph # (Auto) (1.32-3.57) K/mm3 Williams # (Auto) (0.30-0.82) K/mm3 Eos # (Auto) (0.04-0.54) K/mm3 Baso # (Auto) (0.01-0.08) K/mm3 Neutrophils % (Manual) (40-60) % Band Neutrophils % (0-10) % Lymphocytes % (Manual) (20-40) % Atypical Lymphs % % Monocytes % (Manual) (2-10) % Eosinophils % (Manual) (0.8-7.0) % Basophils % (Manual) (0.2-1.2) Manual Slide Review Platelet Estimate Anisocytosis RBC Morph Comment PT (9.7-11.7) SECONDS INR APTT (22-31) SECONDS D-Dimer, Quantitative 0.98 H (0.19-0.50) mg/L Sodium (136-145) mEq/L Potassium (3.5-5.1) mEq/L Chloride (98-107) mEq/L Carbon Dioxide (21-32) mEq/L Anion Gap (5-15) BUN (7-18) mg/dL Creatinine (0.7-1.3) mg/dL Est Cr Clr Drug Dosing mL/min Estimated GFR (MDRD) (>60) mL/min BUN/Creatinine Ratio (14-18) Glucose (74-106) mg/dL Calcium (8.5-10.1) mg/dL Phosphorus (2.6-4.7) mg/dL Magnesium (1.8-2.4) mg/dl Ferritin (26-388) ng/ml Total Bilirubin (0.2-1.0) mg/dL AST (15-37) U/L ALT (16-63) U/L Alkaline Phosphatase (46-116) U/L Lactate Dehydrogenase (85-227) U/L Troponin I (0.00-0.056) ng/mL C-Reactive Protein (<1.0) mg/dL NT-Pro-B Natriuret Pep (0-125) pg/mL Total Protein (6.4-8.2) g/dl Albumin (3.4-5.0) g/dl Globulin gm/dL Albumin/Globulin Ratio (1-2) Vitamin D 25-Hydroxy 38.2 (30.0-100.0) ng/ml Blood Type Med Orders - Current: Current Medications Acetaminophen (Tylenol) 650 mg PO Q4H PRN PRN Reason: Pain (Mild 1-3)/fever Last Admin: 07/08/20 09:58 Dose: 650 mg Documented by: Albuterol (Proventil Neb Soln) 2.5 mg NEB Q2H PRN PRN Reason: Shortness Of Breath/wheezing Last Admin: 07/08/20 04:41 Dose: 2.5 mg Documented by: Dexamethasone (Dexamethasone) 6 mg PO Q24H [facility] Stop: 07/16/20 21:01 Docusate Sodium (Colace) 100 mg PO BID PRN PRN Reason: Constipation Enoxaparin Sodium (Lovenox) 40 mg SUBCUT BEDTIME [facility] Last Admin: 07/07/20 20:53 Dose: 40 mg Documented by: Guaifenesin (Mucinex) 600 mg PO BID [facility] Remdesivir 100 mg/ Sodium (Chloride) 100 mls @ 100 mls/hr IV Q24H [facility] Stop: 07/11/20 21:59 Ceftriaxone Sodium 2 gm/ (Sodium Chloride) 100 mls @ 200 mls/hr IV Q24H [facility]SE[facility]EL Last Admin: 07/08/20 09:12 Dose: 200 mls/hr Documented by: Azithromycin 500 mg/ Sodium (Chloride) 250 mls @ 250 mls/hr IV Q24H [facility] Stop: 07/10/20 10:59 Last Admin: 07/08/20 09:15 Dose: 250 mls/hr Documented by: Ondansetron HCl (Zofran Odt) 4 mg PO Q6H PRN PRN Reason: nausea, able to take PO Oxycodone HCl (Oxycodone) 5 mg PO Q4H PRN PRN Reason: Pain (moderate 4-6) Last Admin: 07/08/20 09:41 Dose: 5 mg Documented by: Sodium Chloride (Saline Flush) 10 ml FLUSH ONETIME PRN PRN Reason: Keep Vein Open Last Admin: 07/07/20 14:50 Dose: 10 ml Documented by: Temazepam (Restoril) 15 mg PO BEDTIME PRN PRN Reason: Sleep Discontinued Medications Acetaminophen (Tylenol) 650 mg PO NOW ONE Stop: 07/07/20 17:41 Last Admin: 07/07/20 17:50 Dose: 650 mg Documented by: Dexamethasone (Dexamethasone) 6 mg IV DAILY [facility] Last Admin: 07/08/20 00:27 Dose: Not Given Documented by: Dexamethasone (Dexamethasone) 6 mg IV DAILY [facility] Last Admin: 07/07/20 21:02 Dose: 6 mg Documented by: Dexamethasone (Dexamethasone) 6 mg IV Q24H [facility] Stop: 07/16/20 21:01 Enoxaparin Sodium (Lovenox) 40 mg SUBCUT DAILY [facility] Last Admin: 07/08/20 00:28 Dose: Not Given Documented by: Sodium Chloride (Normal Saline) 1,000 mls @ 999 mls/hr IV ONETIME ONE Stop: 07/07/20 14:21 Last Admin: 07/07/20 13:30 Dose: 999 mls/hr Documented by: Sodium Chloride (Normal Saline) 45 mls @ 40 mls/hr IV ASDIRECTED [facility] Last Admin: 07/07/20 14:50 Dose: 40 mls/hr Documented by: Sodium Chloride (Normal Saline) 1,000 mls @ 75 mls/hr IV ASDIRECTED [facility] Last Admin: 07/07/20 18:08 Dose: 75 mls/hr Documented by: Remdesivir 200 mg/ Sodium (Chloride) 250 mls @ 250 mls/hr IV ONETIME ONE Stop: 07/07/20 17:59 Last Admin: 07/08/20 00:27 Dose: Not Given Documented by: Remdesivir 200 mg/ Sodium (Chloride) 250 mls @ 250 mls/hr IV ONETIME ONE Stop: 07/07/20 21:44 Last Admin: 07/07/20 21:40 Dose: 250 mls/hr Documented by: Influenza Virus Vaccine (Fluzone Quad 2230-3507 Syringe) 60 mcg IM .ONCE ONE Stop: 07/07/20 21:46 Iopamidol (Isovue-300 (61%)) 100 ml IVPUSH ONETIME ONE Stop: 07/07/20 14:27 Last Admin: 07/07/20 14:27 Dose: Not Given Documented by: Iopamidol (Isovue-370 (76%)) 100 ml IVPUSH ONETIME ONE Stop: 07/07/20 14:29 Last Admin: 07/07/20 14:50 Dose: 100 ml Documented by: - Exam Quality Assessment: Supplemental Oxygen (High flow O2), DVT Prophylaxis (Lovenox) General: Alert, Oriented, Cooperative, Moderate Distress HEENT: Pupils Equal, Pupils Reactive, Mucous Membr. Moist/Stepney Neck: Supple, Trachea Midline. No: Lymphadenopathy Lungs: Decreased Breath Sounds, Crackles (Bilateral bases) Cardiovascular: Regular Rate, Regular Rhythm GI/Abdominal Exam: Normal Bowel Sounds, Soft, Non-Tender, No Distention (Male) Exam: Deferred Back Exam: Normal Inspection, Full Range of Motion Extremities: Normal Inspection, Normal Range of Motion, Non-Tender, No Pedal Edema, Normal Capillary Refill Peripheral Pulses: 2+: Radial (L), Radial (R), Dorsalis Pedis (L), Dorsalis Pedis (R) Skin: Warm, Dry, Intact Neurological: No New Focal Deficit Psy/Mental Status: Alert, Normal Mood, Anxious Sepsis Event Note - Evaluation Sepsis Screening Result: No Definite Risk - Focused Exam Vital Signs: Vital Signs Temp Temp Pulse Resp BP BP Pulse Ox 07/08/20 11:04 98.5 F 71 18 116/71 07/08/20 10:54 98.6 F 81 20 119/70 07/08/20 10:46 07/08/20 09:58 100.4 F 07/08/20 09:53 100.4 F 07/08/20 08:40 07/08/20 08:00 98.7 F 74 22 H 130/81 91 L 07/08/20 04:41 07/08/20 04:00 98.6 F 60 22 H 107/69 85 L Pulse Ox Pulse Ox Pulse Ox 07/08/20 11:04 07/08/20 10:54 07/08/20 10:46 89 L 07/08/20 09:58 07/08/20 09:53 07/08/20 08:40 90 L 07/08/20 08:00 07/08/20 04:41 94 L 93 L 07/08/20 04:00 - Problem List & Annotations (1) Pneumonia due to 2019 novel coronavirus SNOMED Code(s): 243121389831302195 Code(s): U07.1 - COVID-19; J12.89 - OTHER VIRAL PNEUMONIA Status: Acute Priority: High Current Visit: Yes (2) COVID-19 SNOMED Code(s): 961607543 Code(s): U07.1 - COVID-19 Status: Acute Priority: High Current Visit: Yes (3) Hypoxia SNOMED Code(s): 794397678 Code(s): R09.02 - HYPOXEMIA Status: Acute Priority: High Current Visit: Yes - Problem List Review Problem List Initiated/Reviewed/Updated: Yes - My Orders Last 24 Hours: My Active Orders 07/08/20 05:48 PROCALCITONIN [REF] Stat 07/08/20 09:30 cefTRIAXone [Rocephin] 2 gm Sodium Chloride 0.9% [Normal Saline] 100 ml IV Q24H 07/08/20 10:00 Azithromycin [Zithromax] 500 mg Sodium Chloride 0.9% [Normal Saline (AdvBag)] 250 ml IV Q24H 07/08/20 10:15 guaiFENesin [Mucinex] 600 mg PO BID 07/08/20 10:27 Chest 1V Frontal [CR] Stat 07/08/20 10:34 Consult to Polishing Machine Operator Helper [CONS] Routine 07/08/20 21:00 dexAMETHasone 6 mg PO Q24H 07/09/20 05:11 Chest 1V Frontal [CR] AM - Assessment Assessment:: 07/08/20 * Patient deteriorated overnight going from room air to requiring high flow O2 * Breathing is very labored and is only able to speak in 1-2 word sentences. * Has received first dose of remdesivir. * Convalescent plasma has been ordered, and consent has been signed. I spoke with the patient to provide information about convalescent plasma for himself. I offered him the fax sheet for patients and parents/caregivers for COVID-19 convalescent plasma to read and review. I stated the therapy has been approved by an emergency youth authorization (E you a (process and has not fully been FDA reviewed or approved. I shared potential risks from the therapy including transmission of blood-borne pathogens such as HIV and hepatitis C, allergic and transfusion related reactions, post transfusion purpura. Additionally theoretical risks including a phenomenon called antibody dependent enhancement of infection such as is seen in dengue or attenuation of an immune response that may make patients more susceptible to reinfection. I discussed there are other potential treatment options that are currently not FDA approved to treat COVID-19. Offered opportunity to ask que stions and all questions were answered. The patient voiced understanding and agreed to proceed with the treatment for himself. * Max temperature has been 100.4 in the past 24 hours. Blood pressure and pulse have been unremarkable. * Currently receiving dexamethasone 6 mg daily * WBC 9.24 up from 7.59 * D-dimer 0.98 up from 0.68 * Sodium 130 up from 126 * potassium 4.0 up from 3.9 * BUN 18 down from 19 * creatinine 1.3 down from 1.4 * GFR 57 up from 52 * Magnesium 2.4 * C-reactive protein 31.8 up from 28.1 * Vitamin D level 38.2 * Chest x-ray completed at 10:26 AM shows ill-defined bilateral upper lobe infiltrates consistent with COVID-19 pneumonia. - Plan Plan:: The patient is a 54-year-old gentleman who has been admitted as an inpatient secondary to hypoxia and COVID-19. The patient will be kept on oxygen to help keep his saturations at 90 to 92%. Also he will be started on remdesivir 100 mg initially by 100 mg IV daily. I have also started the patient on dexamethasone 6 mg IV daily. He will be ordered to have 2 L of convalescent plasma. The patient has been advised of the emergency use also authorization and he agrees. The patient also be started on anticoagulation with the use of Lovenox 40 mg. The patient will have a regular diet as tolerated. I have also ordered repeat laboratory studies for the morning. The patient should be appropriate for discharge in 3 to 5 days. 1. I spoke with Jerrod to provide information about convalescent plasma for COVID -19 2. I offered them the Facts Sheet for Patients and Parents/Caregivers for COVID-19 convalescent plasma to read and review. 3. I stated that the therapy has been approved by the Emergency Use Authorization (EUA) process and not fully been FDA reviewed or approved. 4. I shared potential risk from the therapy including transmission of blood borne pathogens such as HIV and hepatitis C, allergic and transfusion related reactions, post-transfusion purpura. Additionally, theoretical risks including a phenomenon called anti-body dependent enhancement of infection such as seen in dengue fever or attenuation of an immune response that may make patients more susceptible to re-infection. 5. I discussed there are other potential treatment options that are currently not FDA approved to treat COVID-19. 6. Discussed with the patient that is not an exclusion for convalescent plasma treatment, but the therapy has not been fully evaluated in patients. 7. Offered the opportunity to ask questions and all questions were answered. 8. Jerrod voiced understanding and agreed to proceed with treatment for him. 1. I spoke with Jerrod to provide information about Remdesvir for COVID-19 2. I offered them the Facts Sheet for Patients and Parents/Caregivers for COVID-19 Remdesvir to read and review. 3. I stated that the therapy has been approved by the Emergency Use Authorization (EUA) process and not fully been FDA reviewed or approved. 4. The patient meets EUA requirements. 5. I shared that the drug may cause liver abnormalities and infusion related side effects. Additionally, other side effects are possible but not known as the drug has had limited studies. 6. I discussed there are other potential treatment options that are currently not FDA approved to treat COVID-19. Plasma treatment, but the therapy has not been fully evaluated in patients. 7. Discussed with the patient that is not an exclusion for Remdesvir treatment. 8. Offered the opportunity to ask questions and all questions were answered. 9. Jerrod voiced understanding and agreed to proceed with treatment for him. 07/08/20 * Monitor and treat for hypoxia * Incentive spirometer * Acapella * Respiratory care to continue to titrate oxygen * Prone positioning * Start Rocephin 2 g IV every 24 hours x5 days * Start Zithromax 500 mg IV every 24 hours x3 days * Continue remdesivir and dexamethasone * Transfuse convalescent plasma today * Lovenox for DVT prophylaxis * Dietitian consult regarding increased protein needs * Repeat labs in the a.m. * Repeat chest x-ray in the a.m. * Saline lock IV fluids Plan is to continue the patient as MedSurg status. Patient will likely be here greater than 96 hours due to treatment for Covid <Wade Iniguez - Last Filed: 07/08/20 17:59> - Patient Data Vitals - Most Recent: Last Vital Signs Temp 37.4 C 07/08/20 15:14 Pulse 71 07/08/20 14:01 Resp 20 07/08/20 14:01 BP 123/66 07/08/20 14:01 Pulse Ox 94 L 07/08/20 17:00 I&O - Last 24 Hours: Intake & Output 07/08/20 07/08/20 07/08/20 06:59 14:59 22:59 Intake Total 851 520 Balance 851 520 Lab Results Last 24 Hours: Laboratory Results - last 24 hr 07/07/20 07/08/20 07/08/20 Range/Units 12:13 05:48 05:48 WBC 9.24 H (4.23-9.07) K/mm3 RBC 4.64 (4.63-6.08) M/mm3 Hgb 14.7 (13.7-17.5) gm/dl Hct 43.2 (40.1-51.0) % MCV 93.1 H (79.0-92.2) fl MCH 31.7 (25.7-32.2) pg MCHC 34.0 (32.2-35.5) g/dl RDW Std Deviation 44.0 H (35.1-43.9) fL Plt Count 239 (163-337) K/mm3 MPV 8.9 L (9.4-12.3) fl Neut % (Auto) 94.8 H (34.0-67.9) % Lymph % (Auto) 2.5 L (21.8-53.1) % Williams % (Auto) 2.4 L (5.3-12.2) % Eos % (Auto) 0 L (0.8-7.0) Baso % (Auto) 0.0 L (0.1-1.2) % Neut # (Auto) 8.76 H (1.78-5.38) K/mm3 Lymph # (Auto) 0.23 L (1.32-3.57) K/mm3 Williams # (Auto) 0.22 L (0.30-0.82) K/mm3 Eos # (Auto) 0.00 L (0.04-0.54) K/mm3 Baso # (Auto) 0.00 L (0.01-0.08) K/mm3 Manual Slide Review Abnormal smear D-Dimer, Quantitative (0.19-0.50) mg/L Sodium 130 L (136-145) mEq/L Potassium 4.0 (3.5-5.1) mEq/L Chloride 94 L (98-107) mEq/L Carbon Dioxide 26 (21-32) mEq/L Anion Gap 14.0 (5-15) BUN 18 (7-18) mg/dL Creatinine 1.3 (0.7-1.3) mg/dL Est Cr Clr Drug Dosing 61.38 mL/min Estimated GFR (MDRD) 57 (>60) mL/min BUN/Creatinine Ratio 13.8 L (14-18) Glucose 156 H (74-106) mg/dL Calcium 8.2 L (8.5-10.1) mg/dL Phosphorus 3.4 (2.6-4.7) mg/dL Magnesium 2.4 (1.8-2.4) mg/dl Total Bilirubin 0.7 (0.2-1.0) mg/dL AST 74 H (15-37) U/L ALT 69 H (16-63) U/L Alkaline Phosphatase 65 (46-116) U/L C-Reactive Protein 31.8 H* (<1.0) mg/dL Total Protein 6.4 (6.4-8.2) g/dl Albumin 2.6 L (3.4-5.0) g/dl Globulin 3.8 gm/dL Albumin/Globulin Ratio 0.7 L (1-2) Vitamin D 25-Hydroxy (30.0-100.0) ng/ml Blood Type O POSITIVE 07/08/20 07/08/20 Range/Units 05:48 05:48 WBC (4.23-9.07) K/mm3 RBC (4.63-6.08) M/mm3 Hgb (13.7-17.5) gm/dl Hct (40.1-51.0) % MCV (79.0-92.2) fl MCH (25.7-32.2) pg MCHC (32.2-35.5) g/dl RDW Std Deviation (35.1-43.9) fL Plt Count (163-337) K/mm3 MPV (9.4-12.3) fl Neut % (Auto) (34.0-67.9) % Lymph % (Auto) (21.8-53.1) % Williams % (Auto) (5.3-12.2) % Eos % (Auto) (0.8-7.0) Baso % (Auto) (0.1-1.2) % Neut # (Auto) (1.78-5.38) K/mm3 Lymph # (Auto) (1.32-3.57) K/mm3 Williams # (Auto) (0.30-0.82) K/mm3 Eos # (Auto) (0.04-0.54) K/mm3 Baso # (Auto) (0.01-0.08) K/mm3 Manual Slide Review D-Dimer, Quantitative 0.98 H (0.19-0.50) mg/L Sodium (136-145) mEq/L Potassium (3.5-5.1) mEq/L Chloride (98-107) mEq/L Carbon Dioxide (21-32) mEq/L Anion Gap (5-15) BUN (7-18) mg/dL Creatinine (0.7-1.3) mg/dL Est Cr Clr Drug Dosing mL/min Estimated GFR (MDRD) (>60) mL/min BUN/Creatinine Ratio (14-18) Glucose (74-106) mg/dL Calcium (8.5-10.1) mg/dL Phosphorus (2.6-4.7) mg/dL Magnesium (1.8-2.4) mg/dl Total Bilirubin (0.2-1.0) mg/dL AST (15-37) U/L ALT (16-63) U/L Alkaline Phosphatase (46-116) U/L C-Reactive Protein (<1.0) mg/dL Total Protein (6.4-8.2) g/dl Albumin (3.4-5.0) g/dl Globulin gm/dL Albumin/Globulin Ratio (1-2) Vitamin D 25-Hydroxy 38.2 (30.0-100.0) ng/ml Blood Type Med Orders - Current: Current Medications Acetaminophen (Tylenol) 650 mg PO Q4H PRN PRN Reason: Pain (Mild 1-3)/fever Last Admin: 07/08/20 15:14 Dose: 650 mg Documented by: Albuterol (Proventil Neb Soln) 2.5 mg NEB Q2H PRN PRN Reason: Shortness Of Breath/wheezing Last Admin: 07/08/20 04:41 Dose: 2.5 mg Documented by: Dexamethasone (Dexamethasone) 6 mg PO Q24H [facility] Stop: 07/16/20 21:01 Docusate Sodium (Colace) 100 mg PO BID PRN PRN Reason: Constipation Enoxaparin Sodium (Lovenox) 40 mg SUBCUT BEDTIME [facility] Last Admin: 07/07/20 20:53 Dose: 40 mg Documented by: Guaifenesin (Mucinex) 600 mg PO BID [facility] Last Admin: 07/08/20 13:20 Dose: 600 mg Documented by: Remdesivir 100 mg/ Sodium (Chloride) 100 mls @ 100 mls/hr IV Q24H [facility] Stop: 07/11/20 21:59 Ceftriaxone Sodium 2 gm/ (Sodium Chloride) 100 mls @ 200 mls/hr IV Q24H [facility] Last Admin: 07/08/20 09:12 Dose: 200 mls/hr Documented by: Azithromycin 500 mg/ Sodium (Chloride) 250 mls @ 250 mls/hr IV Q24H [facility] Stop: 07/10/20 10:59 Last Admin: 07/08/20 09:15 Dose: 250 mls/hr Documented by: Ondansetron HCl (Zofran Odt) 4 mg PO Q6H PRN PRN Reason: nausea, able to take PO Oxycodone HCl (Oxycodone) 5 mg PO Q4H PRN PRN Reason: Pain (moderate 4-6) Last Admin: 07/08/20 09:41 Dose: 5 mg Documented by: Sodium Chloride (Saline Flush) 10 ml FLUSH ONETIME PRN PRN Reason: Keep Vein Open Last Admin: 07/07/20 14:50 Dose: 10 ml Documented by: Temazepam (Restoril) 15 mg PO BEDTIME PRN PRN Reason: Sleep Discontinued Medications Acetaminophen (Tylenol) 650 mg PO NOW ONE Stop: 07/07/20 17:41 Last Admin: 07/07/20 17:50 Dose: 650 mg Documented by: Dexamethasone (Dexamethasone) 6 mg IV DAILY [facility] Last Admin: 07/08/20 00:27 Dose: Not Given Documented by: Dexamethasone (Dexamethasone) 6 mg IV DAILY [facility] Last Admin: 07/07/20 21:02 Dose: 6 mg Documented by: Dexamethasone (Dexamethasone) 6 mg IV Q24H [facility] Stop: 07/16/20 21:01 Enoxaparin Sodium (Lovenox) 40 mg SUBCUT DAILY [facility] Last Admin: 07/08/20 00:28 Dose: Not Given Documented by: Sodium Chloride (Normal Saline) 1,000 mls @ 999 mls/hr IV ONETIME ONE Stop: 07/07/20 14:21 Last Admin: 07/07/20 13:30 Dose: 999 mls/hr Documented by: Sodium Chloride (Normal Saline) 45 mls @ 40 mls/hr IV ASDIRECTED [facility] Last Admin: 07/07/20 14:50 Dose: 40 mls/hr Documented by: Sodium Chloride (Normal Saline) 1,000 mls @ 75 mls/hr IV ASDIRECTED [facility] Last Admin: 07/07/20 18:08 Dose: 75 mls/hr Documented by: Remdesivir 200 mg/ Sodium (Chloride) 250 mls @ 250 mls/hr IV ONETIME ONE Stop: 07/07/20 17:59 Last Admin: 07/08/20 00:27 Dose: Not Given Documented by: Remdesivir 200 mg/ Sodium (Chloride) 250 mls @ 250 mls/hr IV ONETIME ONE Stop: 07/07/20 21:44 Last Admin: 07/07/20 21:40 Dose: 250 mls/hr Documented by: Influenza Virus Vaccine (Fluzone Quad Syringe) 60 mcg IM .ONCE ONE Stop: 07/07/20 21:46 Iopamidol (Isovue-300 (61%)) 100 ml IVPUSH ONETIME ONE Stop: 07/07/20 14:27 Last Admin: 07/07/20 14:27 Dose: Not Given Documented by: Iopamidol (Isovue-370 (76%)) 100 ml IVPUSH ONETIME ONE Stop: 07/07/20 14:29 Last Admin: 07/07/20 14:50 Dose: 100 ml Documented by: Sepsis Event Note - Focused Exam Vital Signs: Vital Signs Temp Temp Pulse Resp BP BP Pulse Ox 07/08/20 17:00 07/08/20 15:14 37.4 C 07/08/20 14:01 37.3 C 71 20 123/66 07/08/20 13:55 37.3 C 69 20 129/77 07/08/20 13:09 07/08/20 13:00 37.0 C 75 24 H 113/65 91 L 07/08/20 12:30 37.2 C 73 20 109/67 90 L 07/08/20 11:04 36.9 C 71 18 116/71 07/08/20 10:54 37.0 C 81 20 119/70 07/08/20 10:46 07/08/20 09:58 38.0 C 07/08/20 09:53 38.0 C 07/08/20 08:40 07/08/20 08:00 37.1 C 74 22 H 130/81 91 L Pulse Ox 07/08/20 17:00 94 L 07/08/20 15:14 07/08/20 14:01 07/08/20 13:55 07/08/20 13:09 92 L 07/08/20 13:00 07/08/20 12:30 07/08/20 11:04 07/08/20 10:54 07/08/20 10:46 89 L 07/08/20 09:58 07/08/20 09:53 07/08/20 08:40 90 L 07/08/20 08:00 - Problem List & Annotations (1) COVID-19 SNOMED Code(s): 095075244 Code(s): U07.1 - COVID-19 Status: Acute Priority: High Current Visit: Yes (2) Hypoxia SNOMED Code(s): 634414650 Code(s): R09.02 - HYPOXEMIA Status: Acute Priority: High Current Visit: Yes - My Orders Last 24 Hours: My Active Orders 07/07/20 Dinner Regular Diet [DIET] 07/07/20 21:00 Enoxaparin [Lovenox] 40 mg SUBCUT BEDTIME Temazepam [Restoril] 15 mg PO BEDTIME PRN 07/07/20 21:40 Influenza Vaccine Charge [RC] .DISCHARGE 07/08/20 21:00 Remdesivir (Eua) [Remdesivir (EUA)] 100 mg Sodium Chloride 0.9% [Normal Saline] 100 ml IV Q24H - Plan Plan:: I have seen and examined the patient independent of nurse practitioner Armando Tao and I have discussed the case with her. I have reviewed and agree with the assessment and plan as outlined for this patient by her. Please see orders.
[2020-07-08] MEDS: guaiFENesin 600 MG Tab.ER PO SCH ×2 (13:20→20:14)
[2020-07-08] MEDS: Dexamethasone 4 MG Tab PO SCH (20:13)
[2020-07-08] MEDS: Enoxaparin 40 MG/0.4 ML Syringe SUBCUT SCH (20:15)
[2020-07-08] MEDS: REMDESIVIR (EUA) 100 MG in Sodium Chloride 0.9% 100 ML IV SCH (20:16)
[2020-07-08] MEDS ORDERED: Dexamethasone 4 MG/ML SDV IV SCH (21:00)
[2020-07-09] MEDS: oxyCODONE 5 MG Tab PO PRN ×3 (05:19→20:30)
[2020-07-09] MEDS: guaiFENesin 600 MG Tab.ER PO SCH (08:03)
[2020-07-09] MEDS ORDERED: guaiFENesin 600 MG Tab.ER PO PRN (08:23)
[2020-07-09] MEDS: Azithromycin 500 MG in Sodium Chloride 0.9% 250 ML IV SCH (09:10)
[2020-07-09] MEDS: cefTRIAXone 2 GM in Sodium Chloride 0.9% 100 ML IV SCH (09:11)
--- NOTE | 2020-07-09 13:18 | PCM.PN ---
<AislinnArmando M - Last Filed: 07/09/20 13:47> - General Info Date of Service: 07/09/20 Admission Dx/Problem (Free Text): Admission Diagnosis/Problem Admission Diagnosis/Problem Hypoxia, COVID-19 Subjective Update: Patient continues to have moderate respiratory distress. He is on high flow O2 60 L with an FiO2 of 70%. Continues to be agreeable with prone positioning. Functional Status: Reports: Pain Controlled, Urinating, Incentive Spirometry (Encouragement respiratory care is at the bedside to do this every 2 hours.). Denies: Tolerating Diet (Very poor appetite), Ambulating - Review of Systems General: Reports: Weakness, Fatigue, Malaise. Denies: Appetite (Very poor) HEENT: Reports: No Symptoms Pulmonary: Reports: Shortness of Breath, Cough. Denies: Sputum Cardiovascular: Reports: No Symptoms Gastrointestinal: Reports: Decreased Appetite. Denies: Diarrhea, Nausea, Vomiting Genitourinary: Reports: No Symptoms Musculoskeletal: Reports: No Symptoms Skin: Reports: No Symptoms Neurological: Reports: No Symptoms Psychiatric: Reports: No Symptoms - Patient Data Vitals - Most Recent: Last Vital Signs Temp 97.5 F 07/09/20 08:00 Pulse 68 07/09/20 04:01 Resp 28 H 07/09/20 08:00 BP 131/74 07/09/20 08:00 Pulse Ox 94 L 07/09/20 08:28 Weight - Most Recent: 77.111 kg I&O - Last 24 Hours: Intake & Output 07/08/20 07/09/20 07/09/20 22:59 06:59 14:59 Intake Total 620 600 Output Total 500 400 Balance 120 200 Lab Results Last 24 Hours: Laboratory Results - last 24 hr 07/07/20 07/08/20 07/09/20 Range/Units 12:13 05:48 05:38 WBC 9.65 H (4.23-9.07) K/mm3 RBC 4.68 (4.63-6.08) M/mm3 Hgb 14.6 (13.7-17.5) gm/dl Hct 44.2 (40.1-51.0) % MCV 94.4 H (79.0-92.2) fl MCH 31.2 (25.7-32.2) pg MCHC 33.0 (32.2-35.5) g/dl RDW Std Deviation 44.9 H (35.1-43.9) fL Plt Count 264 (163-337) K/mm3 MPV 8.8 L (9.4-12.3) fl Neut % (Auto) 95.7 H (34.0-67.9) % Lymph % (Auto) 2.5 L (21.8-53.1) % Mower % (Auto) 1.6 L (5.3-12.2) % Eos % (Auto) 0 L (0.8-7.0) Baso % (Auto) 0.0 L (0.1-1.2) % Neut # (Auto) 9.24 H (1.78-5.38) K/mm3 Lymph # (Auto) 0.24 L (1.32-3.57) K/mm3 Mower # (Auto) 0.15 L (0.30-0.82) K/mm3 Eos # (Auto) 0.00 L (0.04-0.54) K/mm3 Baso # (Auto) 0.00 L (0.01-0.08) K/mm3 Manual Slide Review Abnormal smear D-Dimer, Quantitative (0.19-0.50) mg/L Sodium (136-145) mEq/L Potassium (3.5-5.1) mEq/L Chloride (98-107) mEq/L Carbon Dioxide (21-32) mEq/L Anion Gap (5-15) BUN (7-18) mg/dL Creatinine (0.7-1.3) mg/dL Est Cr Clr Drug Dosing mL/min Estimated GFR (MDRD) (>60) mL/min BUN/Creatinine Ratio (14-18) Glucose (74-106) mg/dL Calcium (8.5-10.1) mg/dL Phosphorus (2.6-4.7) mg/dL Magnesium (1.8-2.4) mg/dl Total Bilirubin (0.2-1.0) mg/dL AST (15-37) U/L ALT (16-63) U/L Alkaline Phosphatase (46-116) U/L C-Reactive Protein (<1.0) mg/dL Total Protein (6.4-8.2) g/dl Albumin (3.4-5.0) g/dl Globulin gm/dL Albumin/Globulin Ratio (1-2) Procalcitonin 1.22 H (<0.10) ng/mL Blood Type O POSITIVE 07/09/20 07/09/20 Range/Units 05:38 05:38 WBC (4.23-9.07) K/mm3 RBC (4.63-6.08) M/mm3 Hgb (13.7-17.5) gm/dl Hct (40.1-51.0) % MCV (79.0-92.2) fl MCH (25.7-32.2) pg MCHC (32.2-35.5) g/dl RDW Std Deviation (35.1-43.9) fL Plt Count (163-337) K/mm3 MPV (9.4-12.3) fl Neut % (Auto) (34.0-67.9) % Lymph % (Auto) (21.8-53.1) % Mower % (Auto) (5.3-12.2) % Eos % (Auto) (0.8-7.0) Baso % (Auto) (0.1-1.2) % Neut # (Auto) (1.78-5.38) K/mm3 Lymph # (Auto) (1.32-3.57) K/mm3 Mower # (Auto) (0.30-0.82) K/mm3 Eos # (Auto) (0.04-0.54) K/mm3 Baso # (Auto) (0.01-0.08) K/mm3 Manual Slide Review D-Dimer, Quantitative 1.53 H (0.19-0.50) mg/L Sodium 129 L (136-145) mEq/L Potassium 4.3 (3.5-5.1) mEq/L Chloride 93 L (98-107) mEq/L Carbon Dioxide 28 (21-32) mEq/L Anion Gap 12.3 (5-15) BUN 25 H (7-18) mg/dL Creatinine 1.1 (0.7-1.3) mg/dL Est Cr Clr Drug Dosing 72.55 mL/min Estimated GFR (MDRD) > 60 (>60) mL/min BUN/Creatinine Ratio 22.7 H (14-18) Glucose 156 H (74-106) mg/dL Calcium 8.5 (8.5-10.1) mg/dL Phosphorus 2.6 (2.6-4.7) mg/dL Magnesium 2.5 H (1.8-2.4) mg/dl Total Bilirubin 0.6 (0.2-1.0) mg/dL AST 56 H (15-37) U/L ALT 65 H (16-63) U/L Alkaline Phosphatase 73 (46-116) U/L C-Reactive Protein 31.2 H* (<1.0) mg/dL Total Protein 6.4 (6.4-8.2) g/dl Albumin 2.5 L (3.4-5.0) g/dl Globulin 3.9 gm/dL Albumin/Globulin Ratio 0.6 L (1-2) Procalcitonin (<0.10) ng/mL Blood Type Med Orders - Current: Current Medications Acetaminophen (Tylenol) 650 mg PO Q4H PRN PRN Reason: Pain (Mild 1-3)/fever Last Admin: 07/08/20 20:17 Dose: 650 mg Documented by: Albuterol (Proventil Neb Soln) 2.5 mg NEB Q2H PRN PRN Reason: Shortness Of Breath/wheezing Last Admin: 07/08/20 04:41 Dose: 2.5 mg Documented by: Dexamethasone (Dexamethasone) 6 mg PO Q24H [facility] Stop: 07/16/20 21:01 Last Admin: 07/08/20 20:13 Dose: 6 mg Documented by: Docusate Sodium (Colace) 100 mg PO BID PRN PRN Reason: Constipation Last Admin: 07/08/20 20:14 Dose: 100 mg Documented by: Enoxaparin Sodium (Lovenox) 40 mg SUBCUT BEDTIME [facility] Last Admin: 07/08/20 20:15 Dose: 40 mg Documented by: Guaifenesin (Mucinex) 600 mg PO BID PRN PRN Reason: Other Remdesivir 100 mg/ Sodium (Chloride) 100 mls @ 100 mls/hr IV Q24H [facility] Stop: 07/11/20 21:59 Last Admin: 07/08/20 20:16 Dose: 100 mls/hr Documented by: Ceftriaxone Sodium 2 gm/ (Sodium Chloride) 100 mls @ 200 mls/hr IV Q24H [facility] Last Admin: 07/09/20 09:11 Dose: 200 mls/hr Documented by: Azithromycin 500 mg/ Sodium (Chloride) 250 mls @ 250 mls/hr IV Q24H [facility] Stop: 07/10/20 10:59 Last Admin: 07/09/20 09:10 Dose: 250 mls/hr Documented by: Ondansetron HCl (Zofran Odt) 4 mg PO Q6H PRN PRN Reason: nausea, able to take PO Oxycodone HCl (Oxycodone) 5 mg PO Q4H PRN PRN Reason: Pain (moderate 4-6) Last Admin: 07/09/20 05:19 Dose: 5 mg Documented by: Sodium Chloride (Saline Flush) 10 ml FLUSH ONETIME PRN PRN Reason: Keep Vein Open Last Admin: 07/07/20 14:50 Dose: 10 ml Documented by: Temazepam (Restoril) 15 mg PO BEDTIME PRN PRN Reason: Sleep Last Admin: 07/08/20 21:29 Dose: 15 mg Documented by: Discontinued Medications Acetaminophen (Tylenol) 650 mg PO NOW ONE Stop: 07/07/20 17:41 Last Admin: 07/07/20 17:50 Dose: 650 mg Documented by: Dexamethasone (Dexamethasone) 6 mg IV DAILY [facility] Last Admin: 07/08/20 00:27 Dose: Not Given Documented by: Dexamethasone (Dexamethasone) 6 mg IV DAILY [facility] Last Admin: 07/07/20 21:02 Dose: 6 mg Documented by: Dexamethasone (Dexamethasone) 6 mg IV Q24H [facility] Stop: 07/16/20 21:01 Enoxaparin Sodium (Lovenox) 40 mg SUBCUT DAILY [facility] Last Admin: 07/08/20 00:28 Dose: Not Given Documented by: Guaifenesin (Mucinex) 600 mg PO BID [facility] Last Admin: 07/09/20 08:03 Dose: 600 mg Documented by: Sodium Chloride (Normal Saline) 1,000 mls @ 999 mls/hr IV ONETIME ONE Stop: 07/07/20 14:21 Last Admin: 07/07/20 13:30 Dose: 999 mls/hr Documented by: Sodium Chloride (Normal Saline) 45 mls @ 40 mls/hr IV ASDIRECTED [facility] Last Admin: 07/07/20 14:50 Dose: 40 mls/hr Documented by: Sodium Chloride (Normal Saline) 1,000 mls @ 75 mls/hr IV ASDIRECTED [facility] Last Admin: 07/07/20 18:08 Dose: 75 mls/hr Documented by: Remdesivir 200 mg/ Sodium (Chloride) 250 mls @ 250 mls/hr IV ONETIME ONE Stop: 07/07/20 17:59 Last Admin: 07/08/20 00:27 Dose: Not Given Documented by: Remdesivir 200 mg/ Sodium (Chloride) 250 mls @ 250 mls/hr IV ONETIME ONE Stop: 07/07/20 21:44 Last Admin: 07/07/20 21:40 Dose: 250 mls/hr Documented by: Influenza Virus Vaccine (Fluzone Quad Syringe) 60 mcg IM .ONCE ONE Stop: 07/07/20 21:46 Iopamidol (Isovue-300 (61%)) 100 ml IVPUSH ONETIME ONE Stop: 07/07/20 14:27 Last Admin: 07/07/20 14:27 Dose: Not Given Documented by: Iopamidol (Isovue-370 (76%)) 100 ml IVPUSH ONETIME ONE Stop: 07/07/20 14:29 Last Admin: 07/07/20 14:50 Dose: 100 ml Documented by: - Exam Quality Assessment: Supplemental Oxygen (High flow O2), DVT Prophylaxis (Lovenox) General: Alert, Oriented, Cooperative, Moderate Distress HEENT: Pupils Equal, Pupils Reactive, Mucous Membr. Moist/[place] Neck: Supple, Trachea Midline. No: Lymphadenopathy Lungs: Decreased Breath Sounds, Crackles (Lateral bases) Cardiovascular: Regular Rate, Regular Rhythm, No Murmurs GI/Abdominal Exam: Normal Bowel Sounds, Soft, Non-Tender (Male) Exam: Deferred Back Exam: Normal Inspection, Full Range of Motion Extremities: Normal Inspection, Normal Range of Motion, Non-Tender, No Pedal Edema, Normal Capillary Refill Peripheral Pulses: 2+: Radial (L), Radial (R), Dorsalis Pedis (L), Dorsalis Pedis (R) Skin: Warm, Dry, Intact Neurological: No New Focal Deficit Psy/Mental Status: Alert, Normal Affect, Anxious Sepsis Event Note - Evaluation Sepsis Screening Result: No Definite Risk - Focused Exam Vital Signs: Vital Signs Temp Pulse Resp BP Pulse Ox Pulse Ox 07/09/20 08:28 94 L 07/09/20 08:00 97.5 F 28 H 131/74 89 L 07/09/20 06:15 92 L 07/09/20 04:01 68 95 07/09/20 04:00 99 F 28 H 90/57 L 96 07/09/20 03:00 63 94 L 07/09/20 02:00 59 L 95 - Problem List & Annotations (1) Pneumonia due to 2019 novel coronavirus SNOMED Code(s): 787109826628071600 Code(s): U07.1 - COVID-19; J12.89 - OTHER VIRAL PNEUMONIA Status: Acute Priority: High Current Visit: Yes (2) COVID-19 SNOMED Code(s): 281338177 Code(s): U07.1 - COVID-19 Status: Acute Priority: High Current Visit: Yes (3) Hypoxia SNOMED Code(s): 856181966 Code(s): R09.02 - HYPOXEMIA Status: Acute Priority: High Current Visit: Yes - Problem List Review Problem List Initiated/Reviewed/Updated: Yes - My Orders Last 24 Hours: My Active Orders 07/08/20 21:00 dexAMETHasone 6 mg PO Q24H 07/09/20 05:11 Chest 1V Frontal [CR] AM 07/09/20 08:23 guaiFENesin [Mucinex] 600 mg PO BID PRN 07/10/20 05:11 C-REACTIVE PROTEIN [CHEM] DAILY CBC WITH AUTO DIFF [HEME] DAILY COMPREHENSIVE METABOLIC PN,CMP [CHEM] DAILY D-DIMER QUANTITATIVE [COAG] DAILY MAGNESIUM [CHEM] DAILY PHOSPHORUS [CHEM] DAILY 07/11/20 05:11 C-REACTIVE PROTEIN [CHEM] DAILY CBC WITH AUTO DIFF [HEME] DAILY COMPREHENSIVE METABOLIC PN,CMP [CHEM] DAILY D-DIMER QUANTITATIVE [COAG] DAILY MAGNESIUM [CHEM] DAILY PHOSPHORUS [CHEM] DAILY 07/12/20 05:11 C-REACTIVE PROTEIN [CHEM] DAILY CBC WITH AUTO DIFF [HEME] DAILY COMPREHENSIVE METABOLIC PN,CMP [CHEM] DAILY D-DIMER QUANTITATIVE [COAG] DAILY MAGNESIUM [CHEM] DAILY PHOSPHORUS [CHEM] DAILY - Assessment Assessment:: 07/08/20 * Patient deteriorated overnight going from room air to requiring high flow O2 * Breathing is very labored and is only able to speak in 1-2 word sentences. * Has received first dose of remdesivir. * Convalescent plasma has been ordered, and consent has been signed. I spoke with the patient to provide information about convalescent plasma for himself. I offered him the fax sheet for patients and parents/caregivers for COVID-19 convalescent plasma to read and review. I stated the therapy has been approved by an emergency youth authorization (E you a (process and has not fully been FDA reviewed or approved. I shared potential risks from the therapy including transmission of blood-borne pathogens such as HIV and hepatitis C, allergic and transfusion related reactions, post transfusion purpura. Additionally theoretical risks including a phenomenon called antibody dependent enhancement of infection such as is seen in dengue or atte nuation of an immune response that may make patients more susceptible to reinfection. I discussed there are other potential treatment options that are currently not FDA approved to treat COVID-19. Offered opportunity to ask questions and all questions were answered. The patient voiced understanding and agreed to proceed with the treatment for himself. * Max temperature has been 100.4 in the past 24 hours. Blood pressure and pulse have been unremarkable. * Currently receiving dexamethasone 6 mg daily * WBC 9.24 up from 7.59 * D-dimer 0.98 up from 0.68 * Sodium 130 up from 126 * potassium 4.0 up from 3.9 * BUN 18 down from 19 * creatinine 1.3 down from 1.4 * GFR 57 up from 52 * Magnesium 2.4 * C-reactive protein 31.8 up from 28.1 * Vitamin D level 38.2 * Chest x-ray completed at 10:26 AM shows ill-defined bilateral upper lobe infiltrates consistent with COVID-19 pneumonia. 07/09/20 * Continues on high flow O2 * Respiratory therapy to continue working with patient on titrating O2, using incentive spirometer, and Acapella * Continue on remdesivir, Rocephin, and Zithromax and dexamethasone. * T-max has been 100.4 in the past 24 hours. Otherwise vital signs are stable. * Lung sounds with crackles noted bilaterally * Has been doing prone positioning consistently. * WBC 9.65 up from 9.24 * D-dimer 1.53 up from 0.98 * Sodium 129 down from 130 * Potassium 4.3 * BUN 25 up from 18 * Creatinine 1.1 down from 1.3 * GFR greater than 60 * Magnesium 2.5 * C-reactive protein 31.2 down from 31.8 * Chest x-ray from today shows worsened diffuse pneumonia without pulmonary edema. - Plan Plan:: The patient is a 54-year-old gentleman who has been admitted as an inpatient secondary to hypoxia and COVID-19. The patient will be kept on oxygen to help keep his saturations at 90 to 92%. Also he will be started on remdesivir 100 mg initially by 100 mg IV daily. I have also started the patient on dexamethasone 6 mg IV daily. He will be ordered to have 2 L of convalescent plasma. The patient has been advised of the emergency use also authorization and he agrees. The patient also be started on anticoagulation with the use of Lovenox 40 mg. The patient will have a regular diet as tolerated. I have also ordered repeat laboratory studies for the morning. The patient should be appropriate for disc harge in 3 to 5 days. 1. I spoke with Jerrod to provide information about convalescent plasma for COVID -19 2. I offered them the Facts Sheet for Patients and Parents/Caregivers for COVID-19 convalescent plasma to read and review. 3. I stated that the therapy has been approved by the Emergency Use Authorization (EUA) process and not fully been FDA reviewed or approved. 4. I shared potential risk from the therapy including transmission of blood borne pathogens such as HIV and hepatitis C, allergic and transfusion related reactions, post-transfusion purpura. Additionally, theoretical risks including a phenomenon called anti-body dependent enhancement of infection such as seen in dengue fever or attenuation of an immune response that may make patients more susceptible to re-infection. 5. I discussed there are other potential treatment options that are currently not FDA approved to treat COVID-19. 6. Discussed with the patient that is not an exclusion for convalescent plasma treatment, but the therapy has not been fully evaluated in patients. 7. Offered the opportunity to ask questions and all questions were answered. 8. Jerrod voiced understanding and agreed to proceed with treatment for him. 1. I spoke with Jerrod to provide information about Remdesvir for COVID-19 2. I offered them the Facts Sheet for Patients and Parents/Caregivers for COVID-19 Remdesvir to read and review. 3. I stated that the therapy has been approved by the Emergency Use Authorization (EUA) process and not fully been FDA reviewed or approved. 4. The patient meets EUA requirements. 5. I shared that the drug may cause liver abnormalities and infusion related side effects. Additionally, other side effects are possible but not known as the drug has had limited studies. 6. I discussed there are other potential treatment options that are currently not FDA approved to treat COVID-19. Plasma treatment, but the therapy has not been fully evaluated in patients. 7. Discussed with the patient that is not an exclusion for Remdesvir treatment. 8. Offered the opportunity to ask questions and all questions were answered. 9. Jerrod voiced understanding and agreed to proceed with treatment for him. 07/08/20 * Monitor and treat for hypoxia * Incentive spirometer * Acapella * Respiratory care to continue to titrate oxygen * Prone positioning * Start Rocephin 2 g IV every 24 hours x5 days * Start Zithromax 500 mg IV every 24 hours x3 days * Continue remdesivir and dexamethasone * Transfuse convalescent plasma today * Lovenox for DVT prophylaxis * Dietitian consult regarding increased protein needs * Repeat labs in the a.m. * Repeat chest x-ray in the a.m. * Saline lock IV fluids Plan is to continue the patient as MedSurg status. Patient will likely be here greater than 96 hours due to treatment for Covid 07/09/20 * Respiratory care to continue titrating oxygen, using I-S every 2 hours with Acapella. * Continue to monitor and treat for hypoxia * Continue prone positioning * Continue Rocephin Zithromax remdesivir and dexamethasone. * Lovenox for DVT prophylaxis * Continue to monitor vital signs * Repeat labs in the a.m. and correct any electrolyte abnormalities. * Change patient to ICU status as chest x-ray looks significantly worse. * Repeat chest x-ray in the a.m. <Wade Iniguez - Last Filed: 07/09/20 16:28> - Patient Data Vitals - Most Recent: Last Vital Signs Temp 36.6 C 07/09/20 12:00 Pulse 74 07/09/20 15:35 Resp 30 H 07/09/20 12:00 BP 108/72 07/09/20 15:35 Pulse Ox 89 L 07/09/20 15:35 I&O - Last 24 Hours: Intake & Output 07/09/20 07/09/20 07/09/20 06:59 14:59 22:59 Intake Total 600 200 Output Total 400 Balance 200 200 Lab Results Last 24 Hours: Laboratory Results - last 24 hr 07/08/20 07/09/20 07/09/20 Range/Units 05:48 05:38 05:38 WBC 9.65 H (4.23-9.07) K/mm3 RBC 4.68 (4.63-6.08) M/mm3 Hgb 14.6 (13.7-17.5) gm/dl Hct 44.2 (40.1-51.0) % MCV 94.4 H (79.0-92.2) fl MCH 31.2 (25.7-32.2) pg MCHC 33.0 (32.2-35.5) g/dl RDW Std Deviation 44.9 H (35.1-43.9) fL Plt Count 264 (163-337) K/mm3 MPV 8.8 L (9.4-12.3) fl Neut % (Auto) 95.7 H (34.0-67.9) % Lymph % (Auto) 2.5 L (21.8-53.1) % Mower % (Auto) 1.6 L (5.3-12.2) % Eos % (Auto) 0 L (0.8-7.0) Baso % (Auto) 0.0 L (0.1-1.2) % Neut # (Auto) 9.24 H (1.78-5.38) K/mm3 Lymph # (Auto) 0.24 L (1.32-3.57) K/mm3 Mower # (Auto) 0.15 L (0.30-0.82) K/mm3 Eos # (Auto) 0.00 L (0.04-0.54) K/mm3 Baso # (Auto) 0.00 L (0.01-0.08) K/mm3 Manual Slide Review Abnormal smear D-Dimer, Quantitative 1.53 H (0.19-0.50) mg/L Sodium (136-145) mEq/L Potassium (3.5-5.1) mEq/L Chloride (98-107) mEq/L Carbon Dioxide (21-32) mEq/L Anion Gap (5-15) BUN (7-18) mg/dL Creatinine (0.7-1.3) mg/dL Est Cr Clr Drug Dosing mL/min Estimated GFR (MDRD) (>60) mL/min BUN/Creatinine Ratio (14-18) Glucose (74-106) mg/dL Calcium (8.5-10.1) mg/dL Phosphorus (2.6-4.7) mg/dL Magnesium (1.8-2.4) mg/dl Total Bilirubin (0.2-1.0) mg/dL AST (15-37) U/L ALT (16-63) U/L Alkaline Phosphatase (46-116) U/L C-Reactive Protein (<1.0) mg/dL Total Protein (6.4-8.2) g/dl Albumin (3.4-5.0) g/dl Globulin gm/dL Albumin/Globulin Ratio (1-2) Procalcitonin 1.22 H (<0.10) ng/mL 07/09/20 Range/Units 05:38 WBC (4.23-9.07) K/mm3 RBC (4.63-6.08) M/mm3 Hgb (13.7-17.5) gm/dl Hct (40.1-51.0) % MCV (79.0-92.2) fl MCH (25.7-32.2) pg MCHC (32.2-35.5) g/dl RDW Std Deviation (35.1-43.9) fL Plt Count (163-337) K/mm3 MPV (9.4-12.3) fl Neut % (Auto) (34.0-67.9) % Lymph % (Auto) (21.8-53.1) % Mower % (Auto) (5.3-12.2) % Eos % (Auto) (0.8-7.0) Baso % (Auto) (0.1-1.2) % Neut # (Auto) (1.78-5.38) K/mm3 Lymph # (Auto) (1.32-3.57) K/mm3 Mower # (Auto) (0.30-0.82) K/mm3 Eos # (Auto) (0.04-0.54) K/mm3 Baso # (Auto) (0.01-0.08) K/mm3 Manual Slide Review D-Dimer, Quantitative (0.19-0.50) mg/L Sodium 129 L (136-145) mEq/L Potassium 4.3 (3.5-5.1) mEq/L Chloride 93 L (98-107) mEq/L Carbon Dioxide 28 (21-32) mEq/L Anion Gap 12.3 (5-15) BUN 25 H (7-18) mg/dL Creatinine 1.1 (0.7-1.3) mg/dL Est Cr Clr Drug Dosing 72.55 mL/min Estimated GFR (MDRD) > 60 (>60) mL/min BUN/Creatinine Ratio 22.7 H (14-18) Glucose 156 H (74-106) mg/dL Calcium 8.5 (8.5-10.1) mg/dL Phosphorus 2.6 (2.6-4.7) mg/dL Magnesium 2.5 H (1.8-2.4) mg/dl Total Bilirubin 0.6 (0.2-1.0) mg/dL AST 56 H (15-37) U/L ALT 65 H (16-63) U/L Alkaline Phosphatase 73 (46-116) U/L C-Reactive Protein 31.2 H* (<1.0) mg/dL Total Protein 6.4 (6.4-8.2) g/dl Albumin 2.5 L (3.4-5.0) g/dl Globulin 3.9 gm/dL Albumin/Globulin Ratio 0.6 L (1-2) Procalcitonin (<0.10) ng/mL Med Orders - Current: Current Medications Acetaminophen (Tylenol) 650 mg PO Q4H PRN PRN Reason: Pain (Mild 1-3)/fever Last Admin: 07/08/20 20:17 Dose: 650 mg Documented by: Albuterol (Proventil Neb Soln) 2.5 mg NEB Q2H PRN PRN Reason: Shortness Of Breath/wheezing Last Admin: 07/08/20 04:41 Dose: 2.5 mg Documented by: Dexamethasone (Dexamethasone) 6 mg PO Q24H [facility] Stop: 07/16/20 21:01 Last Admin: 07/08/20 20:13 Dose: 6 mg Documented by: Docusate Sodium (Colace) 100 mg PO BID PRN PRN Reason: Constipation Last Admin: 07/08/20 20:14 Dose: 100 mg Documented by: Enoxaparin Sodium (Lovenox) 40 mg SUBCUT BEDTIME [facility] Last Admin: 07/08/20 20:15 Dose: 40 mg Documented by: Guaifenesin (Mucinex) 600 mg PO BID PRN PRN Reason: Other Remdesivir 100 mg/ Sodium (Chloride) 100 mls @ 100 mls/hr IV Q24H [facility] Stop: 07/11/20 21:59 Last Admin: 07/08/20 20:16 Dose: 100 mls/hr Documented by: Ceftriaxone Sodium 2 gm/ (Sodium Chloride) 100 mls @ 200 mls/hr IV Q24H [facility] Last Admin: 07/09/20 09:11 Dose: 200 mls/hr Documented by: Azithromycin 500 mg/ Sodium (Chloride) 250 mls @ 250 mls/hr IV Q24H [facility] Stop: 07/10/20 10:59 Last Admin: 07/09/20 09:10 Dose: 250 mls/hr Documented by: Ondansetron HCl (Zofran Odt) 4 mg PO Q6H PRN PRN Reason: nausea, able to take PO Oxycodone HCl (Oxycodone) 5 mg PO Q4H PRN PRN Reason: Pain (moderate 4-6) Last Admin: 07/09/20 13:37 Dose: 5 mg Documented by: Sodium Chloride (Saline Flush) 10 ml FLUSH ONETIME PRN PRN Reason: Keep Vein Open Last Admin: 07/07/20 14:50 Dose: 10 ml Documented by: Temazepam (Restoril) 15 mg PO BEDTIME PRN PRN Reason: Sleep Last Admin: 07/08/20 21:29 Dose: 15 mg Documented by: Discontinued Medications Acetaminophen (Tylenol) 650 mg PO NOW ONE Stop: 07/07/20 17:41 Last Admin: 07/07/20 17:50 Dose: 650 mg Documented by: Dexamethasone (Dexamethasone) 6 mg IV DAILY [facility] Last Admin: 07/08/20 00:27 Dose: Not Given Documented by: Dexamethasone (Dexamethasone) 6 mg IV DAILY [facility] Last Admin: 07/07/20 21:02 Dose: 6 mg Documented by: Dexamethasone (Dexamethasone) 6 mg IV Q24H [facility] Stop: 07/16/20 21:01 Enoxaparin Sodium (Lovenox) 40 mg SUBCUT DAILY [facility] Last Admin: 07/08/20 00:28 Dose: Not Given Documented by: Guaifenesin (Mucinex) 600 mg PO BID [facility] Last Admin: 07/09/20 08:03 Dose: 600 mg Documented by: Sodium Chloride (Normal Saline) 1,000 mls @ 999 mls/hr IV ONETIME ONE Stop: 07/07/20 14:21 Last Admin: 07/07/20 13:30 Dose: 999 mls/hr Documented by: Sodium Chloride (Normal Saline) 45 mls @ 40 mls/hr IV ASDIRECTED [facility] Last Admin: 07/07/20 14:50 Dose: 40 mls/hr Documented by: Sodium Chloride (Normal Saline) 1,000 mls @ 75 mls/hr IV ASDIRECTED [facility] Last Admin: 07/07/20 18:08 Dose: 75 mls/hr Documented by: Remdesivir 200 mg/ Sodium (Chloride) 250 mls @ 250 mls/hr IV ONETIME ONE Stop: 07/07/20 17:59 Last Admin: 07/08/20 00:27 Dose: Not Given Documented by: Remdesivir 200 mg/ Sodium (Chloride) 250 mls @ 250 mls/hr IV ONETIME ONE Stop: 07/07/20 21:44 Last Admin: 07/07/20 21:40 Dose: 250 mls/hr Documented by: Influenza Virus Vaccine (Fluzone Quad Syringe) 60 mcg IM .ONCE ONE Stop: 07/07/20 21:46 Iopamidol (Isovue-300 (61%)) 100 ml IVPUSH ONETIME ONE Stop: 07/07/20 14:27 Last Admin: 07/07/20 14:27 Dose: Not Given Documented by: Iopamidol (Isovue-370 (76%)) 100 ml IVPUSH ONETIME ONE Stop: 07/07/20 14:29 Last Admin: 07/07/20 14:50 Dose: 100 ml Documented by: Sepsis Event Note - Focused Exam Vital Signs: Vital Signs Temp Pulse Resp BP BP Pulse Ox Pulse Ox 07/09/20 15:35 74 108/72 89 L 07/09/20 15:34 77 89 L 07/09/20 15:00 75 97 07/09/20 14:00 94 L 07/09/20 13:00 92 L 96 07/09/20 12:01 95 07/09/20 12:00 36.6 C 30 H 121/70 98 07/09/20 11:59 95 07/09/20 11:00 91 L 07/09/20 10:00 79 L 07/09/20 09:00 90 L 07/09/20 08:28 94 L 07/09/20 08:01 68 131/74 79 L 07/09/20 08:00 36.4 C 75 28 H 131/74 75 L 07/09/20 07:00 65 93 L 07/09/20 06:15 92 L 07/09/20 06:00 67 94 L 07/09/20 05:00 71 91 L - Problem List & Annotations (1) COVID-19 SNOMED Code(s): 180455164 Code(s): U07.1 - COVID-19 Status: Acute Priority: High Current Visit: Yes (2) Hypoxia SNOMED Code(s): 802674605 Code(s): R09.02 - HYPOXEMIA Status: Acute Priority: High Current Visit: Yes - My Orders Last 24 Hours: My Active Orders 07/08/20 21:00 Remdesivir (Eua) [Remdesivir (EUA)] 100 mg Sodium Chloride 0.9% [Normal Saline] 100 ml IV Q24H - Plan Plan:: I have seen and examined the patient independent of nurse practitioner Armando Tao and I have discussed the case with her. I have reviewed and agree with the assessment and plan as outlined for this patient by her. Please see orders.
[2020-07-09] MEDS: Dexamethasone 4 MG Tab PO SCH (20:14)
[2020-07-09] MEDS: REMDESIVIR (EUA) 100 MG in Sodium Chloride 0.9% 100 ML IV SCH (20:14)
[2020-07-09] MEDS ORDERED: Furosemide 20 MG/2 ML VIAL IVPUSH ONE (20:15)
[2020-07-09] MEDS: Enoxaparin 40 MG/0.4 ML Syringe SUBCUT SCH (20:15)
[2020-07-09] MEDS: Acetaminophen 325 MG Tab PO PRN (20:31)
[2020-07-10] MEDS: oxyCODONE 5 MG Tab PO PRN (06:38)
[2020-07-10] MEDS ORDERED: Heparin Sodium 5,000 Units/ML Vial IVPUSH ONE (07:47)
[2020-07-10] MEDS ORDERED: Heparin Sodium/D5W 25,000 UNITS/500 ML BAG IV SCH (08:00)
[2020-07-10] MEDS: cefTRIAXone 2 GM in Sodium Chloride 0.9% 100 ML IV SCH (08:42)
--- NOTE | 2020-07-10 09:05 | PCM.DCSUM1 ---
Discharge Summary - Hospital Course HPI Initial Comments: The patient was initially admitted due to COVID-19 pneumonia with hypoxia. Diagnosis: Stroke: No - Discharge Data Discharge Date: 07/10/20 Discharge Disposition: DC/Tfer to Acute Hospital 02 Condition: Serious - Referral to Home Health Primary Care Physician: PCP None - Discharge Diagnosis/Problem(s) (1) COVID-19 SNOMED Code(s): 783972292 ICD Code: U07.1 - COVID-19 Status: Acute Priority: High Current Visit: Yes (2) Hypoxia SNOMED Code(s): 695576612 ICD Code: R09.02 - HYPOXEMIA Status: Acute Priority: High Current Visit: Yes - Patient Summary/Data Consults: Consultations 07/08/20 10:34 Consult to Labor Relations Representative [CONS] Routine Hospital Course: The patient is a previously healthy 54-year-old gentleman who was admitted to acute hospitalization on July 07, 2020. Patient had presented to the emergency department with a complaint of shortness of breath with cough. The patient was COVID-19 positive. The patient was placed on remdesivir 200 mg IV initially followed by 100 mg and has had 4 out of 5 doses. He was also placed on dexamethasone 6 mg IV daily. The patient also had 2 units of convalescent plasma and he tolerated these well. Initially the patient was hypoxic at 92% with 3 L oxygen via nasal cannula. Rapidly over short course of period of time the patient had his oxygen demands markedly increased. He was placed on BiPAP and was noted to be hypoxic with 58 mmHg PaO2. Patient was also kept prone in order to help maintain his oxygen saturations. Whenever he would move his oxygen saturations would drop and take a prolonged time to recover. Chest x-ray obtained by day of transfer showed marked worsening of his COVID-19 related pneumonia. Also, the patient's D-dimer had increased markedly to 15.48 mg/L. The patient was then started on IV heparin out of concern for for possible thrombosis. The patient also when his condition first began to decline was started on azithromycin 500 mg IV daily as well as Rocephin 1 g IV daily. The patient tolerated these well. The patient essentially has no core morbidities and as result of this the decision was made to transfer to the patient to tertiary care center. ICU physician, Dr. Ruff, has accepted. The transfer has been initiated and the patient will be discharged once transportation is available. - Patient Instructions Diet: NPO Activity: Bedrest - Discharge Plan *PRESCRIPTION DRUG MONITORING PROGRAM REVIEWED*: No *COPY OF PRESCRIPTION DRUG MONITORING REPORT IN PATIENT JEANNETTE: No Home Medications: Home Meds Azithromycin [Zithromax] 500 mg IV Q24H adv 07/10/20 [Rx] Remdesivir (Eua) [Remdesivir (EUA)] 100 mg IV Q24H vial 07/10/20 [Rx] cefTRIAXone [Rocephin] 2 gm IV Q24H adv 07/10/20 [Rx] dexAMETHasone [Dexamethasone] 6 mg PO Q24H tablet 07/10/20 [Rx] Oxygen Therapy Mode: BiPAP Patient Handouts: COVID-19 Frequently Asked Questions, COVID-19, COVID-19: How to Protect Yourself and Others - CDC, Prevent the Spread of COVID-19 if You Are Sick - [facility] Forms: ED Department Discharge Referrals: PCP,None [Primary Care Provider] - - Discharge Summary/Plan Comment DC Time >30 min.: Yes - General Info Date of Service: 07/10/20 Admission Dx/Problem (Free Text: Admission Diagnosis/Problem Admission Diagnosis/Problem Hypoxia, COVID-19 Subjective Update: The patient says that he is not better today. He is still short of breath. He also finds it is very difficult to move and maintain adequate breaths. Functional Status: Reports: Pain Controlled, Tolerating Diet - Review of Systems General: Reports: Weakness, Fatigue HEENT: Reports: No Symptoms Pulmonary: Reports: Shortness of Breath, Cough Cardiovascular: Reports: Dyspnea on Exertion Gastrointestinal: Reports: No Symptoms Genitourinary: Reports: No Symptoms Musculoskeletal: Reports: No Symptoms Skin: Reports: No Symptoms Neurological: Reports: No Symptoms Psychiatric: Reports: No Symptoms - Patient Data Vitals - Most Recent: Last Vital Signs Temp 36.4 C 07/10/20 08:57 Pulse 77 07/09/20 16:00 Resp 36 H 07/10/20 08:57 BP 132/80 07/10/20 08:57 Pulse Ox 98 07/10/20 08:57 Weight - Most Recent: 79 kg I&O - Last 24 hours: Intake & Output 07/09/20 07/10/20 07/10/20 22:59 06:59 14:59 Intake Total 1710 100 Output Total 1650 775 Balance 60 -675 Lab Results - Last 24 hrs: Laboratory Results - last 24 hr 07/10/20 07/10/20 07/10/20 Range/Units 04:22 04:22 04:22 WBC 6.77 (4.23-9.07) K/mm3 RBC 4.62 L (4.63-6.08) M/mm3 Hgb 14.6 (13.7-17.5) gm/dl Hct 43.7 (40.1-51.0) % MCV 94.6 H (79.0-92.2) fl MCH 31.6 (25.7-32.2) pg MCHC 33.4 (32.2-35.5) g/dl RDW Std Deviation 44.8 H (35.1-43.9) fL Plt Count 298 (163-337) K/mm3 MPV 8.9 L (9.4-12.3) fl Neut % (Auto) 93.0 H (34.0-67.9) % Lymph % (Auto) 3.8 L (21.8-53.1) % [place] % (Auto) 2.8 L (5.3-12.2) % Eos % (Auto) 0 L (0.8-7.0) Baso % (Auto) 0.1 (0.1-1.2) % Neut # (Auto) 6.29 H (1.78-5.38) K/mm3 Lymph # (Auto) 0.26 L (1.32-3.57) K/mm3 [place] # (Auto) 0.19 L (0.30-0.82) K/mm3 Eos # (Auto) 0.00 L (0.04-0.54) K/mm3 Baso # (Auto) 0.01 (0.01-0.08) K/mm3 Manual Slide Review Abnormal smear D-Dimer, Quantitative 15.48 H (0.19-0.50) mg/L Puncture Site ABG pH (7.35-7.45) ABG pCO2 (35.0-45.0) mmHg ABG pO2 (80.0-100.0) mmHg ABG HCO3 (22.0-26.0) meq/L ABG O2 Saturation (96.0-97.0) % ABG Base Excess (-2-2.0) Kristopher Test O2 Delivery Device Oxygen Flow Rate FiO2 (21.00-100.00) % Blood Gas Comments Sodium 129 L (136-145) mEq/L Potassium 4.3 (3.5-5.1) mEq/L Chloride 93 L (98-107) mEq/L Carbon Dioxide 29 (21-32) mEq/L Anion Gap 11.3 (5-15) BUN 25 H (7-18) mg/dL Creatinine 1.2 (0.7-1.3) mg/dL Est Cr Clr Drug Dosing 66.75 mL/min Estimated GFR (MDRD) > 60 (>60) mL/min BUN/Creatinine Ratio 20.8 H (14-18) Glucose 159 H (74-106) mg/dL Calcium 8.2 L (8.5-10.1) mg/dL Phosphorus 3.7 (2.6-4.7) mg/dL Magnesium 2.4 (1.8-2.4) mg/dl Total Bilirubin 0.6 (0.2-1.0) mg/dL AST 73 H (15-37) U/L ALT 77 H (16-63) U/L Alkaline Phosphatase 80 (46-116) U/L C-Reactive Protein 20.6 H* (<1.0) mg/dL Total Protein 6.2 L (6.4-8.2) g/dl Albumin 2.5 L (3.4-5.0) g/dl Globulin 3.7 gm/dL Albumin/Globulin Ratio 0.7 L (1-2) 07/10/20 Range/Units 07:57 WBC (4.23-9.07) K/mm3 RBC (4.63-6.08) M/mm3 Hgb (13.7-17.5) gm/dl Hct (40.1-51.0) % MCV (79.0-92.2) fl MCH (25.7-32.2) pg MCHC (32.2-35.5) g/dl RDW Std Deviation (35.1-43.9) fL Plt Count (163-337) K/mm3 MPV (9.4-12.3) fl Neut % (Auto) (34.0-67.9) % Lymph % (Auto) (21.8-53.1) % [place] % (Auto) (5.3-12.2) % Eos % (Auto) (0.8-7.0) Baso % (Auto) (0.1-1.2) % Neut # (Auto) (1.78-5.38) K/mm3 Lymph # (Auto) (1.32-3.57) K/mm3 [place] # (Auto) (0.30-0.82) K/mm3 Eos # (Auto) (0.04-0.54) K/mm3 Baso # (Auto) (0.01-0.08) K/mm3 Manual Slide Review D-Dimer, Quantitative (0.19-0.50) mg/L Puncture Site Lt radial ABG pH 7.49 H (7.35-7.45) ABG pCO2 35.2 (35.0-45.0) mmHg ABG pO2 58.0 L (80.0-100.0) mmHg ABG HCO3 26.8 H (22.0-26.0) meq/L ABG O2 Saturation 90.8 L (96.0-97.0) % ABG Base Excess 4.0 H (-2-2.0) Kristopher Test Positive O2 Delivery Device Bipap Oxygen Flow Rate 0.0 FiO2 60.00 (21.00-100.00) % Blood Gas Comments Bipap 10/6 Sodium (136-145) mEq/L Potassium (3.5-5.1) mEq/L Chloride (98-107) mEq/L Carbon Dioxide (21-32) mEq/L Anion Gap (5-15) BUN (7-18) mg/dL Creatinine (0.7-1.3) mg/dL Est Cr Clr Drug Dosing mL/min Estimated GFR (MDRD) (>60) mL/min BUN/Creatinine Ratio (14-18) Glucose (74-106) mg/dL Calcium (8.5-10.1) mg/dL Phosphorus (2.6-4.7) mg/dL Magnesium (1.8-2.4) mg/dl Total Bilirubin (0.2-1.0) mg/dL AST (15-37) U/L ALT (16-63) U/L Alkaline Phosphatase (46-116) U/L C-Reactive Protein (<1.0) mg/dL Total Protein (6.4-8.2) g/dl Albumin (3.4-5.0) g/dl Globulin gm/dL Albumin/Globulin Ratio (1-2) Med Orders - Current: Current Medications Acetaminophen (Tylenol) 650 mg PO Q4H PRN PRN Reason: Pain (Mild 1-3)/fever Last Admin: 07/09/20 20:31 Dose: 650 mg Documented by: Albuterol (Proventil Neb Soln) 2.5 mg NEB Q2H PRN PRN Reason: Shortness Of Breath/wheezing Last Admin: 07/08/20 04:41 Dose: 2.5 mg Documented by: Dexamethasone (Dexamethasone) 6 mg PO Q24H [facility] Stop: 07/16/20 21:01 Last Admin: 07/09/20 20:14 Dose: 6 mg Documented by: Docusate Sodium (Colace) 100 mg PO BID PRN PRN Reason: Constipation Last Admin: 07/08/20 20:14 Dose: 100 mg Documented by: Guaifenesin (Mucinex) 600 mg PO BID PRN PRN Reason: Other Remdesivir 100 mg/ Sodium (Chloride) 100 mls @ 100 mls/hr IV Q24H [facility] Stop: 07/11/20 21:59 Last Admin: 07/09/20 20:14 Dose: 100 mls/hr Documented by: Ceftriaxone Sodium 2 gm/ (Sodium Chloride) 100 mls @ 200 mls/hr IV Q24H [facility] Last Admin: 07/10/20 08:42 Dose: 200 mls/hr Documented by: Azithromycin 500 mg/ Sodium (Chloride) 250 mls @ 250 mls/hr IV Q24H [facility] Stop: 07/10/20 10:59 Last Admin: 07/09/20 09:10 Dose: 250 mls/hr Documented by: Heparin Sodium/Dextrose (Heparin 25,000 Units In D5w 500 Ml) 25,000 units in 500 mls @ 26 mls/hr IV TITRATE [facility]; Protocol Last Admin: 07/10/20 08:43 Dose: 28.4 mls/hr Documented by: Ondansetron HCl (Zofran Odt) 4 mg PO Q6H PRN PRN Reason: nausea, able to take PO Oxycodone HCl (Oxycodone) 5 mg PO Q4H PRN PRN Reason: Pain (moderate 4-6) Last Admin: 07/10/20 06:38 Dose: 5 mg Documented by: Sodium Chloride (Saline Flush) 10 ml FLUSH ONETIME PRN PRN Reason: Keep Vein Open Last Admin: 07/07/20 14:50 Dose: 10 ml Documented by: Temazepam (Restoril) 15 mg PO BEDTIME PRN PRN Reason: Sleep Last Admin: 07/08/20 21:29 Dose: 15 mg Documented by: Discontinued Medications Acetaminophen (Tylenol) 650 mg PO NOW ONE Stop: 07/07/20 17:41 Last Admin: 07/07/20 17:50 Dose: 650 mg Documented by: Dexamethasone (Dexamethasone) 6 mg IV DAILY [facility] Last Admin: 07/08/20 00:27 Dose: Not Given Documented by: Dexamethasone (Dexamethasone) 6 mg IV DAILY [facility] Last Admin: 07/07/20 21:02 Dose: 6 mg Documented by: Dexamethasone (Dexamethasone) 6 mg IV Q24H [facility] Stop: 07/16/20 21:01 Enoxaparin Sodium (Lovenox) 40 mg SUBCUT DAILY [facility] Last Admin: 07/08/20 00:28 Dose: Not Given Documented by: Enoxaparin Sodium (Lovenox) 40 mg SUBCUT BEDTIME [facility] Last Admin: 07/09/20 20:15 Dose: 40 mg Documented by: Furosemide (Lasix) 20 mg IVPUSH NOW ONE Stop: 07/09/20 20:16 Last Admin: 07/09/20 20:15 Dose: 20 mg Documented by: Guaifenesin (Mucinex) 600 mg PO BID [facility] Last Admin: 07/09/20 08:03 Dose: 600 mg Documented by: Heparin Sodium (Porcine) (Heparin Sodium) 5,000 units IVPUSH .BOLUS ONE Stop: 07/10/20 07:48 Last Admin: 07/10/20 08:35 Dose: 5,000 units Documented by: Sodium Chloride (Normal Saline) 1,000 mls @ 999 mls/hr IV ONETIME ONE Stop: 07/07/20 14:21 Last Admin: 07/07/20 13:30 Dose: 999 mls/hr Documented by: Sodium Chloride (Normal Saline) 45 mls @ 40 mls/hr IV ASDIRECTED [facility] Last Admin: 07/07/20 14:50 Dose: 40 mls/hr Documented by: Sodium Chloride (Normal Saline) 1,000 mls @ 75 mls/hr IV ASDIRECTED [facility]SEMANUEL Last Admin: 07/07/20 18:08 Dose: 75 mls/hr Documented by: Remdesivir 200 mg/ Sodium (Chloride) 250 mls @ 250 mls/hr IV ONETIME ONE Stop: 07/07/20 17:59 Last Admin: 07/08/20 00:27 Dose: Not Given Documented by: Remdesivir 200 mg/ Sodium (Chloride) 250 mls @ 250 mls/hr IV ONETIME ONE Stop: 07/07/20 21:44 Last Admin: 07/07/20 21:40 Dose: 250 mls/hr Documented by: Influenza Virus Vaccine (Fluzone Quad Syringe) 60 mcg IM .ONCE ONE Stop: 07/07/20 21:46 Iopamidol (Isovue-300 (61%)) 100 ml IVPUSH ONETIME ONE Stop: 07/07/20 14:27 Last Admin: 07/07/20 14:27 Dose: Not Given Documented by: Iopamidol (Isovue-370 (76%)) 100 ml IVPUSH ONETIME ONE Stop: 07/07/20 14:29 Last Admin: 07/07/20 14:50 Dose: 100 ml Documented by: - Exam Quality Assessment: Reports: Supplemental Oxygen, DVT Prophylaxis General: Reports: Alert, Oriented, Cooperative, Moderate Distress HEENT: Reports: Pupils Equal, Pupils Reactive. Denies: Mucous Membr. Moist/[place] (Dry) Neck: Reports: Supple, Trachea Midline Lungs: Reports: Decreased Breath Sounds, Rales (Scattered throughout all lung palacios). Denies: Normal Respiratory Effort Cardiovascular: Reports: Regular Rate, Regular Rhythm GI/Abdominal Exam: Normal Bowel Sounds, Soft, Non-Tender, No Distention (Male) Exam: Deferred Rectal (Males) Exam: Deferred Back Exam: Reports: Normal Inspection, Full Range of Motion Extremities: Normal Inspection, No Pedal Edema Skin: Reports: Warm, Dry, Intact Neurological: Reports: No New Focal Deficit Psy/Mental Status: Reports: Alert, Normal Affect, Anxious
[2020-07-10] MEDS: Azithromycin 500 MG in Sodium Chloride 0.9% 250 ML IV SCH (09:19)
--- NOTE | 2020-07-14 14:12 | CR ---
PROCEDURE INFORMATION: Exam: XR Chest, 1 View Exam date and time: 07/07/2020 12:18 PM Age: 54 years old Clinical indication: Shortness of breath TECHNIQUE: Imaging protocol: XR of the chest Views: 1 view. COMPARISON: No relevant prior studies available. FINDINGS: Lungs: Nodular infiltrates observed in the right upper lobe and left perihilar region. Pleural space: Unremarkable. No pleural effusion. No pneumothorax. Heart/Mediastinum: Unremarkable. No cardiomegaly. Bones/joints: Unremarkable. Other findings: IMPRESSION: Bilateral nodular infiltrates of uncertain etiology. CT recommended for further evaluation. Thank you for allowing us to participate in the care of your patient. Dictated and Authenticated by: Nitesh Salcido MD 07/07/2020 1:53 PM Central Time ([place] & [place]) [facility]
--- NOTE | 2020-07-14 14:15 | CT ---
"PROCEDURE INFORMATION: Exam: CT Chest With Contrast Exam date and time: 07/07/2020 2:32 PM Age: 54 years old Clinical indication: Shortness of breath and other: Evaluation of nodules/elevated d-dimer R/O pe; Patient HX: Covid + TECHNIQUE: Imaging protocol: Computed tomography of the chest with intravenous contrast. 3D rendering (Not supervised by radiologist): MIP and/or 3D reconstructed images were created by the technologist. Contrast material: ISOVUE 370; Contrast volume: 100 ml; Contrast route: INTRAVENOUS (IV); COMPARISON: CR Chest 1V Frontal 07/07/2020 12:18 PM FINDINGS: Lungs: Rather extensive multifocal bilateral ground-glass opacities. There is some associated intralobular septal thickening within both lungs. General peripheral predominance of the ground-glass opacities within the lungs. Pleural space: Unremarkable. No pneumothorax. No pleural effusion. Heart: Unremarkable. No cardiomegaly. No pericardial effusion. Aorta: Unremarkable. No aortic aneurysm. Lymph nodes: Multiple borderline to mildly enlarged thoracic lymph nodes identified. Largest is a subcarinal lymph node measuring 1.7 cm. Bones/joints: Unremarkable. No acute fracture. Soft tissues: Unremarkable. IMPRESSION: 1. Extensive bilateral multifocal predominantly ground-glass opacities as above. Findings suggest a multifocal pneumonia. The findings are often seen with COVID-19 pneumonia. The presence of lymphadenopathy is slightly atypical. Other processes such as influenza pneumonia and organizing [place] | Final Radiology Report CONFIDENTIALITY STATEMENT This report is intended only for use by the referring physician, and only in accordance with law. If you received this in error, call [phone]. Page 2 of 2 pneumonia as can be seen with drug toxicity and connective tissue disease can cause a similar imaging pattern. 2. No acute pulmonary embolus. Thank you for allowing us to participate in the care of your patient. Dictated and Authenticated by: Manuel Fabian MD 07/07/2020 4:20 PM Central Time ([place] & [place]) [facility]"
--- NOTE | 2020-07-15 09:21 | CR ---
PROCEDURE INFORMATION: Exam: XR Chest, 1 View Exam date and time: 07/08/2020 10:26 AM Age: 54 years old Clinical indication: Shortness of breath and other: Low o2 stats TECHNIQUE: Imaging protocol: XR of the chest Views: 1 view. COMPARISON: CT Ang Chest 07/07/2020 2:32 PM FINDINGS: Lungs: Ill-defined upper lobe airspace opacities suggesting multifocal pneumonitis. Pleural space: Unremarkable. No pleural effusion. No pneumothorax. Heart/Mediastinum: Unremarkable. No cardiomegaly. Bones/joints: Unremarkable. IMPRESSION: Ill-defined bilateral upper lobe infiltrates consistent with COVID-19 pneumonia. Thank you for allowing us to participate in the care of your patient. Dictated and Authenticated by: Nitesh Salcido MD 07/08/2020 12:11 PM Central Time ([place] & [place]) [facility]
--- NOTE | 2020-07-15 11:11 | CR ---
PROCEDURE INFORMATION: Exam: XR Chest, 1 View Exam date and time: 07/09/2020 7:42 AM Age: 54 years old Clinical indication: Other: Decreasing o2 stats TECHNIQUE: Imaging protocol: XR of the chest Views: 1 view. COMPARISON: CR Chest 1V Frontal 07/08/2020 10:26 AM FINDINGS: Lungs: Worsened diffuse hazy/ground-glass bilateral lung opacification. Pleural space: No pleural effusion. Heart/Mediastinum: Normal heart and cardiomediastinal silhouette. Vasculature: Normal pulmonary vessel caliber. Normal aorta. Bones/joints: The bones are intact. IMPRESSION: Worsened diffuse pneumonia without pulmonary edema. Thank you for allowing us to participate in the care of your patient. Dictated and Authenticated by: Babak Lennon MD 07/09/2020 9:50 AM Central Time ([place] & [place]) [facility]
--- NOTE | 2020-07-15 12:56 | CR ---
PROCEDURE INFORMATION: Exam: XR Chest, 1 View Exam date and time: 07/10/2020 7:28 AM Age: 54 years old Clinical indication: Other: F/u pneumonia TECHNIQUE: Imaging protocol: XR of the chest Views: 1 view. COMPARISON: CR Chest 1V Frontal 07/09/2020 7:42 AM FINDINGS: Lungs: Ground-glass airspace disease within the mid and lower lung palacios bilaterally appears worse since the prior examination. Pleural space: Unremarkable. No pleural effusion. No pneumothorax. Heart/Mediastinum: Unremarkable. No cardiomegaly. Bones/joints: Unremarkable. IMPRESSION: Ground-glass airspace disease within the mid and lower lung palacios bilaterally appears worse since the prior examination. Thank you for allowing us to participate in the care of your patient. Dictated and Authenticated by: Rey Smith MD 07/10/2020 8:59 AM Central Time ([place] & [place]) [facility]
== END 2020-07-10 10:00 | DRG 137 ==
LOC: JD.ED 11:28 → JD.ICU 16:27
PROVIDERS: ADMIT Internal Medicine; ATTEND Internal Medicine
PROC: XW033E5 Introduction of Remdesivir Anti-infective into Peripheral Vein, Percutaneous Approach, New Technology Group 5 (ICD-10-PCS; principal; 2020-07-07)
PROC: XW13325 Transfusion of Convalescent Plasma (Nonautologous) into Peripheral Vein, Percutaneous Approach, New Technology Group 5 (ICD-10-PCS; 2020-07-08)
PROC: 5A0945A Assistance with Respiratory Ventilation, 24-96 Consecutive Hours, High Flow/Velocity Cannula (ICD-10-PCS; 2020-07-08)
DX: U07.1 COVID-19 (principal); J12.89 Other viral pneumonia; H54.7 Unspecified visual loss
CPT/HCPCS: 36415; 36430; 36600; 71045; 71045-26; 71275; 71275-26; 80053; 82306; 82728; 82803; 83615; 83735; 83880; 84100; 84145; 84484; 85007; 85025; 85027; 85379; 85610; 85730; 86140; 86900; 86901; 93005; 93010; 94640; 94660; 94668; 99222; 99232; 99239; 99284; 99285-25; A9270-GY; J0456; J0696; J1100; J1644; J1650; J1940; J7030; J7050; J8540; P9017; Q9967